=== PATIENT | female | born 1940 | race Caucasian/White ===

== ENCOUNTER 2018-11-17 11:54 | Observation (INO) ==
[2018-11-17 12:04] VITALS: BMI 21.1
--- NOTE | 2018-11-17 12:59 | DR.GENAD ---
HPI Time Seen Time Seen by Provider: 11/17/18 12:56 PCP Primary Care Physician: SWATI HPI Comment HPI Comment: PATIENT IS 78YR OLD WHITE FEMALE WITH HISTORY OF COPD, PULMONARY FIBROSIS AND BRONCHIECTASIS IS IN ED WITH INCREASE SYMPTOMS AND FEVER THAT STARTED YESTERDAY. HOME MEDICATIONS ARE NOT HELPING SYMPTOMS. PATIENT IS ALSO WEAK AND FATIGUE. NOT ON ANTIBIOTICS CURRENTLY. Complaint/Symptoms Chief Complaint Doctors Comments: INCREASING COUGH, GREENISH SPUTUM FOR SEVERAL DAYS AND FEVER TIMES ONE DAY. Chief Complaint:: COUGH/FEVER: FEVER HAS BEEN UP TO 101. FEVER STARTED 11/16/18.TOOK TYLENOL EX AND FEVER WENT DOWN. COUGHING UP GREEN THICK MUCUS. HEAD IS STUFFY WITH HEADACHE. Nurses notes reviewed Nurses Notes Review: Yes Source History Provided: Patient Mode of Arrival Mode of Arrival: Wheelchair Timing Onset of Chief Complaint: 11/14/18 Came on: Gradually Duration Duration: Constant Duration: Days Severity Severity: Moderate Modifying Factors Worsens:: COUGHING WORSENED SYMPTOM. Improves:: REST. Other History Other History: BRONCHIECTASIS. PMH PMH Past Medical History: Yes Past Medical History: COPD, Dyslipidemia and Hypothyroidism Past Surgical History: Yes Surgical History: Hysterectomy Family History History of Family Medical Conditions: Yes Family Medical History: [place], Sudden Cardiac and Hypertension Social History Does any household member use tobacco: No Alcohol Use: None Do you use any recreational Drugs:: No Lives With: Alone Lives Where: Home infectious screening In the last 2 months have you had wt loss of >10#?: NO Have you had fever, night sweats or hemotysis?: No Have you traveled outside the country in the last 6 months?: No Isolation: Standard ROS Review of Systems Constitutional: Fever, Malaise, Weakness and Fatigue; negative Diaphoresis and Other Eyes: No Symptoms Reported; negative Eye Pain, Discharge, Photophobia and D iplopia ENTM: Ear Discharge, Nose Discharge, Nose Congestion and Throat Pain; negative Ear Pain, Nose Pain and Ear Foreign Body Respiratoy: Productive Cough, Short of Breath and Wheezing Cardiovascular: Chest Pain and Edema Gastrointestinal/Abdominal: No Symptoms Reported; negative Abdominal Pain, Constipation, Diarrhea, Nausea and Vomiting Genitourinary: No Symptoms Reported; negative Dysuria, Frequency and Hematuria Neurological: Weakness and Dizziness; negative Headache Musculoskeletal: Back Pain and Muscle Pain Integumentary: Dryness and Rash; negative Change in Color, Bruises and Juandice Hematologic/Lymphatic: Easy Bleeding and Easy Bruising; negative Swollen Glands Endocrine: No Symptoms Reported; negative Increased Thirst and Increased Urine Psychiatric: No Symptoms Reported All Other Systems: Reviewed and Negative PE Vital Signs Vitals: Temperature 97.7 F Pulse Rate [Right Brachial] 98 Pulse Rate 97 Respiratory Rate 20 Blood Pressure [Left Arm] 141/63 Blood Pressure [Right Arm] 154/69 Blood Pressure 162/77 O2 Sat by Pulse Oximetry 97 General Limitations: No Limitations General Appearance: Alert and In Distress Head Head Exam: Normal Inspection, Atraumatic and Normocephalic Eyes Eye exam: Normal Appearance, PERRL and EOMI; negative Scleral Icterus and Conjunctival Injection ENT ENT Exam: Normal External Ear Exam External Ear Exam: Normal External Inspection; negative Mastoid Tenderness, External Tenderness and Periauricular Adenopathy TM/Canal Exam: Bilateral: Normal Nose Exam: Normal Nose Exam; negative Sinus Tenderness, Nasal Deviation, Crepitus and Septal Hematoma Mouth Exam: Normal Inspection; negative Drooling, Trismus, Lip Swelling, Tongue Elevation and Tongue Swelling Throat Exam: Normal Inspection, Tonsillomegaly and Tonsillar Exudate; negative Tonsillar Erythema Neck Neck Exam: Full ROM, Trachea Midline and Other (NECK EINS DISTENTED.); negative Tenderness, Meningismus and Lymphadenopathy Chest Chest Inspection: Symmetric Chest Wall Rise Respiratory Respiratory Exam: Respiratory Distress Respiratory Exam: Bilateral: Wheezing and Bilateral: Rhonchi, Left: Wheezing and Left: Rhonchi, Right: Wheezing and Right: Rhonchi, Upper: Wheezing and Upper: Rhonchi and Lower: Wheezing and Lower: Rhonchi Cardiovascular Cardiovascular Exam: Regular Rate, Normal Rhythm, JVD and +S3; negative Bradycardia and Tachycardia Abdominal Exam Abdominal Exam: Normal Bowel Sounds and Soft; negative Tenderness, Ascites, Mass and Bruit Abdominal Tenderness: Other COURSE Treatment Treatment: 1/2NS AND IV FORTAZ IN ED. Consultation Consultation Comments: DR VANCE WILL ADMIT PATIENT. Education/Counseling Education/Counseling: Patient and Family Educated On: Diagnosis and Needs for Follow Up ROR Labs Reviewed Laboratory Results Reviewed?: Yes Result Diagrams: 11/17/18 13:10 11/17/18 13:10 Laboratory: 11/17/18 14:20 Sputum - Expectorated Sputum - Final WBC 12.3 X10^3/uL (3.6-10.0) H 11/17/18 13:10 RBC 4.82 X10^6/uL (3.5-5.4) 11/17/18 13:10 Hgb 14.0 g/dL (12.0-16.0) 11/17/18 13:10 Hct 41.9 % (36.0-47.0) 11/17/18 13:10 MCV 86.9 fL (80.0-100.0) 11/17/18 13:10 MCH 29.1 pg (27.0-34.0) 11/17/18 13:10 MCHC 33.5 g/dL (33.0-35.0) 11/17/18 13:10 RDW 15.1 % (11.6-16.5) 11/17/18 13:10 Plt Count 262 X10^3/uL (150.0-450.0) 11/17/18 13:10 MPV 9.1 fL (7.4-11.0) 11/17/18 13:10 Neut % (Auto) 86.4 % (42.0-75.0) H 11/17/18 13:10 Lymph % (Auto) 7.4 % (21.0-51.0) L 11/17/18 13:10 [place] % (Auto) 5.5 % (0.0-13.0) 11/17/18 13:10 Eos % (Auto) 0.1 % (0.9-2.9) L 11/17/18 13:10 Baso % (Auto) 0.6 % (0.2-1.0) 11/17/18 13:10 Neut # (Auto) 10.6 x10^3/uL (2.2-4.8) H 11/17/18 13:10 Lymph # (Auto) 0.9 X10^3/uL (1.3-2.9) L 11/17/18 13:10 [place] # (Auto) 0.7 x10^3/uL (0.3-0.8) 11/17/18 13:10 Eos # (Auto) 0.0 x10^3/uL (0.0-0.2) 11/17/18 13:10 Baso # (Auto) 0.1 X10^3/uL (0.0-0.1) 11/17/18 13:10 Absolute Nucleated RBC 0.0 /100WBC 11/17/18 13:10 Sample Site Rr 11/17/18 16:54 ABG pH 7.470 (7.35-7.45) H 11/17/18 16:54 ABG pCO2 40.0 mmHg (35.0-45.0) 11/17/18 16:54 ABG pO2 44.0 mmHg (80.0-100.0) L* 11/17/18 16:54 ABG HCO3 29.1 mmol/L (22-26) H 11/17/18 16:54 ABG O2 Saturation 83.0 % (90-100) L* 11/17/18 16:54 ABG Base Excess 5.0 mmol/L (-2.0-2.0) H 11/17/18 16:54 Prince Test Pos 11/17/18 16:54 A-a Gradient 56.0 mmHg 11/17/18 16:54 FiO2 21.0 11/17/18 16:54 Blood Gas Comments Pt yoly well. cdn 11/17/18 16:54 Sodium 136 mmol/L (136-145) 11/17/18 13:10 Corrected Sodium 137 mmol/L (136-145) 11/17/18 13:10 Potassium 4.1 mmol/L (3.5-5.1) 11/17/18 13:10 Chloride 99 mmol/L (98-107) 11/17/18 13:10 Carbon Dioxide 28.4 mmol/L (21-32) 11/17/18 13:10 BUN 12 mg/dL (7-18) 11/17/18 13:10 Creatinine 0.80 mg/dL (0.55-1.02) 11/17/18 13:10 Est GFR (MDRD) Af Amer > 60 (>60) 11/17/18 13:10 Est GFR (MDRD) Non-Af > 60 (>60) 11/17/18 13:10 Glucose 127 mg/dL (65-99) H 11/17/18 13:10 Lactic Acid 0.9 mmol/L (0.4-2.0) 11/17/18 13:10 Calcium 9.7 mg/dL (8.5-10.1) 11/17/18 13:10 Corrected Calcium TNP 04/14/19 13:10 Total Bilirubin 0.20 mg/dL (0.2-1.0) 11/17/18 13:10 AST 20 Units/L (15-37) 11/17/18 13:10 ALT 22 Units/L (12-78) 11/17/18 13:10 Alkaline Phosphatase 67 Units/L (46-116) 11/17/18 13:10 C-Reactive Protein 78.00 mg/L (0-3.0) H 11/17/18 13:10 Total Protein 7.5 g/dL (6.4-8.2) 11/17/18 13:10 Albumin 3.4 g/dL (3.4-5.0) 11/17/18 13:10 Globulin 4.1 g/dL (2.5-4.5) 11/17/18 13:10 Albumin/Globulin Ratio 0.8 Ratio (1.1-2.1) L 11/17/18 13:10 Specimen Type Clean catch urine 11/17/18 13:55 Urine Color Yellow (YELLOW) 11/17/18 13:55 Urine Appearance Clear (CLEAR) 11/17/18 13:55 Urine pH 6.0 (5.0 - 8.0) 11/17/18 13:55 Ur Specific [place] 1.010 (1.000-1.030) 11/17/18 13:55 Urine Protein Negative (NEGATIVE) 11/17/18 13:55 Urine Glucose (UA) Negative (NEGATIVE) 11/17/18 13:55 Urine Ketones 1+ (NEGATIVE) 11/17/18 13:55 Urine Occult Blood Negative (NEGATIVE) 11/17/18 13:55 Urine Nitrite Negative (NEGATIVE) 11/17/18 13:55 Urine Bilirubin Negative (NEGATIVE) 11/17/18 13:55 Urine Urobilinogen Normal (NORMAL) 11/17/18 13:55 Ur Leukocyte Esterase Negative (NEGATIVE) 11/17/18 13:55 XRAY XRAY Interpreted by: Radiologist XRAY Findings: EPORT ON RECORD NOTED AND DISCUSS WITH PATIENT.
[2018-11-17 13:22] LABS: BASOPHILS # (AUTO) 0.1 X10^3/uL (0.0-0.1); BASOPHILS % (AUTO) 0.6 % (0.2-1.0); EOSINOPHILS % (AUTO) 0.1 % (0.9-2.9); HEMATOCRIT 41.9 % (36.0-47.0); LYMPHOCYTES # (AUTO) 0.9 X10^3/uL (1.3-2.9); LYMPHOCYTES % (AUTO) 7.4 % (21.0-51.0); MEAN CORPUSCULAR HEMOGLOBIN 29.1 pg (27.0-34.0); MEAN CORPUSCULAR HGB CONC 33.5 g/dL (33.0-35.0); MEAN CORPUSCULAR VOLUME 86.9 fL (80.0-100.0); MEAN PLATELET VOLUME 9.1 fL (7.4-11.0); MONOCYTES # (AUTO) 0.7 x10^3/uL (0.3-0.8); MONOCYTES % (AUTO) 5.5 % (0.0-13.0); NEUTROPHILS # (AUTO) 10.6 x10^3/uL (2.2-4.8); NEUTROPHILS % (AUTO) 86.4 % (42.0-75.0); PLATELET COUNT 262 X10^3/uL (150.0-450.0); RED BLOOD COUNT 4.82 X10^6/uL (3.5-5.4); RED CELL DISTRIBUTION WIDTH 15.1 % (11.6-16.5); WHITE BLOOD COUNT 12.3 X10^3/uL (3.6-10.0)
[2018-11-17 13:37] LABS: ALANINE AMINOTRANSFERASE 22 Units/L (12-78); ALBUMIN 3.4 g/dL (3.4-5.0); ALKALINE PHOSPHATASE 67 Units/L (46-116); ASPARTATE AMINO TRANSFERASE 20 Units/L (15-37); BLOOD UREA NITROGEN 12 mg/dL (7-18); CALCIUM 9.7 mg/dL (8.5-10.1); CARBON DIOXIDE 28.4 mmol/L (21-32); CHLORIDE 99 mmol/L (98-107); COR NA(FOR HYPERGLY) 137 mmol/L (136-145); SODIUM 136 mmol/L (136-145); TOTAL PROTEIN 7.5 g/dL (6.4-8.2); eGFR NON BLACK RACES > 60 (>60)
[2018-11-17 13:39] LABS: LACTIC ACID 0.9 mmol/L (0.4-2.0)
[2018-11-17 14:01] LABS: BILIRUBIN,URINE NEGATIVE (NEGATIVE); BLOOD/HEMOGLOBIN,URINE NEGATIVE (NEGATIVE); GLUCOSE, URINE NEGATIVE (NEGATIVE); KETONES,URINE 1+ (NEGATIVE); LEUKOCYTE ESTERASE ,URINE NEGATIVE (NEGATIVE); NITRITES,URINE NEGATIVE (NEGATIVE); PROTEIN,URINE NEGATIVE (NEGATIVE); UROBILINOGEN,URINE NORMAL (NORMAL)
[2018-11-17 14:02] LABS: APPEARANCE,URINE CLEAR (CLEAR); COLOR,URINE YELLOW (YELLOW)
--- NOTE | 2018-11-17 14:27 | RAD ---
Examination: Chest, PA and lateral views History: Cough and fever Comparison 08/11/2014 Findings: Normal heart size with hyperaerated lungs and extensive reticular-nodular interstitial disease throughout the lungs. There is slight left apical pleural thickening. No acute consolidation, mass or large pleural effusion. 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 Similar findings were documented on chest CT of 08/06/2012. The current radiographic findings have progressed since 08/11/2014. A repeat/comparison chest CT may be of value. Reported By:
[2018-11-17] MEDS ORDERED: ROCEPHIN VIAL 1 GRAM IV ONE (15:54)
[2018-11-17] MEDS: NS 1/2 1000 ML IV 1,000 ML IV SCH (16:29)
[2018-11-17] MEDS ORDERED: NS 1/2 1000 ML IV 1,000 ML ONE (16:29)
[2018-11-17] MEDS: SOLU-Medrol 40 MG VIAL IVP SCH ×2 (16:30→21:48)
[2018-11-17] MEDS: FORTAZ or TAZICEF VIAL INJ IVP SCH ×2 (16:30→21:49)
[2018-11-17] MEDS ORDERED: FORTAZ or TAZICEF VIAL INJ ONE (16:30)
[2018-11-17] MEDS ORDERED: SOLU-Medrol 40 MG VIAL ONE (16:30)
[2018-11-17] MEDS: DUONEB 0.5 MG/3 MG NEB SCH ×2 (16:52→20:18)
[2018-11-17 16:57] LABS: ABG HCO3 29.1 mmol/L (22-26)
[2018-11-17 16:59] LABS: ABG ALLEN TEST POS
[2018-11-17] MEDS: PULMICORT NEB TX 0.5 MG NEB SCH (20:18)
[2018-11-17] MEDS: MUCOMYST 20% 200 MG/ML NEB SCH (20:19)
[2018-11-17] MEDS ORDERED: NORVASC TAB 2.5 MG ONE (20:19)
[2018-11-17] MEDS: KLONOPIN TAB 0.5 MG PO SCH (20:32)
[2018-11-17] MEDS: NORVASC TAB 2.5 MG PO SCH (20:32)
[2018-11-17] MEDS: BROVANA IN SCH (20:45)
[2018-11-18] MEDS: DUONEB 0.5 MG/3 MG NEB SCH ×6 (00:14→20:56)
[2018-11-18] MEDS: NS 1/2 1000 ML IV 1,000 ML IV SCH ×2 (05:00→20:37)
[2018-11-18 05:21] LABS: BASOPHILS % (AUTO) 0.2 % (0.2-1.0); HEMATOCRIT 38.9 % (36.0-47.0); HEMOGLOBIN 12.9 g/dL (12.0-16.0); LYMPHOCYTES # (AUTO) 0.9 X10^3/uL (1.3-2.9); LYMPHOCYTES % (AUTO) 11.9 % (21.0-51.0); MEAN CORPUSCULAR HEMOGLOBIN 29.2 pg (27.0-34.0); MEAN CORPUSCULAR HGB CONC 33.2 g/dL (33.0-35.0); MEAN CORPUSCULAR VOLUME 88.1 fL (80.0-100.0); MEAN PLATELET VOLUME 9.3 fL (7.4-11.0); MONOCYTES # (AUTO) 0.5 x10^3/uL (0.3-0.8); MONOCYTES % (AUTO) 7.2 % (0.0-13.0); NEUTROPHILS % (AUTO) 80.7 % (42.0-75.0); PLATELET COUNT 251 X10^3/uL (150.0-450.0); RED BLOOD COUNT 4.42 X10^6/uL (3.5-5.4); RED CELL DISTRIBUTION WIDTH 15.1 % (11.6-16.5); WHITE BLOOD COUNT 7.4 X10^3/uL (3.6-10.0)
[2018-11-18 05:28] LABS: BLOOD UREA NITROGEN 13 mg/dL (7-18); CALCIUM 9.4 mg/dL (8.5-10.1); CARBON DIOXIDE 28.6 mmol/L (21-32); CHLORIDE 101 mmol/L (98-107); COR NA(FOR HYPERGLY) 140 mmol/L (136-145); CREATININE 0.92 mg/dL (0.55-1.02); SODIUM 138 mmol/L (136-145); eGFR NON BLACK RACES > 60 (>60)
[2018-11-18] MEDS: FORTAZ or TAZICEF VIAL INJ IVP SCH ×4 (05:32→21:17)
[2018-11-18] MEDS: SYNTHROID 75 mcg TAB PO SCH ×3 (05:33→17:08)
[2018-11-18] MEDS ORDERED: K-RIDER 10 MEQ/NS 100 ML 10 MEQ/100 ML BAG IV PRN (05:49)
[2018-11-18] MEDS ORDERED: POTASSIUM CHL 60 MEQ/NS 0.45% 500 ML IV PRN (05:49)
[2018-11-18] MEDS ORDERED: KLOR-CON PO PRN (05:49)
[2018-11-18] MEDS ORDERED: K-DUR TAB 20 MEQ PO PRN (05:49)
[2018-11-18] MEDS ORDERED: POTASSIUM CHLORIDE LIQ 20 MEQ UDC PO PRN (05:49)
[2018-11-18] MEDS ORDERED: MICRO K EXTEN CAP 10 MEQ PO PRN (05:49)
[2018-11-18] MEDS ORDERED: POTASSIUM CHL 40 MEQ/NS 0.45% 500 ML IV PRN (05:49)
[2018-11-18] MEDS: MAGNESIUM SULFATE 1 GRAM/100 mL PREMIX 1 GM/100 ML BAG IV PRN ×2 (06:38→08:21)
[2018-11-18] MEDS ORDERED: NORVASC TAB 2.5 MG ONE ×2 (08:09→19:48)
[2018-11-18] MEDS: SOLU-Medrol 40 MG VIAL IVP SCH ×2 (08:17→20:31)
[2018-11-18] MEDS: NORVASC TAB 2.5 MG PO SCH (08:17)
[2018-11-18] MEDS: PULMICORT NEB TX 0.5 MG NEB SCH ×2 (08:25→20:57)
[2018-11-18] MEDS: BROVANA IN SCH ×2 (08:25→21:19)
[2018-11-18] MEDS: MUCOMYST 20% 200 MG/ML NEB SCH ×4 (08:25→20:56)
[2018-11-18] MEDS ORDERED: PATIENT'S HOME MEDICATION (Fluticasone-Umeclidin-Vilanter [Fluticasone-Umeclidin-Vilanter] IN SCH (10:30)
[2018-11-18] MEDS ORDERED: UNIPHYL TAB 400 MG PO SCH (11:00)
[2018-11-18] MEDS ORDERED: ASTELIN NASAL SPRAY ONE ×2 (12:24→20:52)
[2018-11-18] MEDS: UNIPHYL TAB 400 MG PO SCH (12:28)
[2018-11-18] MEDS: MEGACE PO SCH ×4 (12:28→20:40)
[2018-11-18] MEDS: ASTELIN NASAL SPRAY ENOSTRIL SCH ×3 (12:29→21:00)
--- NOTE | 2018-11-18 20:00 | DR.H&P ---
H&P - History & Physical for Day of: H&P Date: 11/17/18 - Chief Complaint Chief Complaint: PRODUCTIVE COUGH, HEADACHE, SOB - History of Present Illness History of Present Illness: IS A 78 YEAR OLD PATIENT OF OURS WHO PRESENTED TO THE ER WITH REPORTS OF INCREASING COUGH, GREENISH SPUTUM, SHORTNESS OF BREATH, AND FEVER SINCE ONE DAY PRIOR. SHE ALSO REPORTS A HEADACHE. SHE HAS A HISTORY OF COPD, PULMONARY FIBROSIS, AND CHRONIC BRONCHITIS. ON ARRIVAL, VITALS WERE 99.4-118-20-95%-162/77. LABS WERE OBTAINED. ABNORMAL LAB VALUES INCLUDE THE FOLLOWING: WBC 12.3, GLUCOSE 127, CRP 78.0. ABG REVEALED: PH 7.470, PC02 40.0, P02 44.0, HC03 29.1, 02 SATURATION 83.0, BASE EXCESS 5.0. SPUTUM AND BLOOD CULTURE PENDING. 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 Similar findings were documented on chest CT of 08/06/2012. The current radiographic findings have progressed since 08/11/2014. A repeat/comparison chest CT may be of value. SHE WAS GIVEN ROCEPHIN 1G IV X 1 DOSE IN THE ER. SHE WAS ADMITTED FOR FURTHER EVAULATION AND TREATMENT OF COPD EXACERBATION. SHE WAS STARTED ON RESPIRATORY TREATMENTS, SUPPLEMENTAL OXYGEN, FORTAZ 1G IV Q8H, AND SOLU-MEDROL 40MG IV Q12H. WE PLAN TO FOLLOW UP WITH AM LABS AND CONTINUE TO MONITOR. - Past Medical History Past Medical History: Dyslipidemia, Hypothyroidism, COPD - Past Surgical History Surgical History: Hysterectomy - Family History Family Medical History: [place], Sudden Cardiac , Hypertension - Social History Does patient currently use any type of tobacco product: No Have you used tobacco products in the last 12 months: No Type of Tobacco Use: None How many years tobacco product used: 30 Does any household member use tobacco: No Alcohol Use: None Drug Use: None - Medications Home Medications: codeine Allergy (Verified 11/17/18 14:00) hydrocodone Allergy (Verified 11/17/18 14:00) CONTINUE taking the following medications azelastine 1 mcg INTRANASAL BID 11/17/18 [History] azelastine 1 mcg INTRANASAL BID 11/17/18 [History] itnlnmwarkf-zaycyfizy-ydxtogpe [Trelegy Ellipta] 1 mcg INHALATION DAILY 11/17/18 [History] lorazepam 0.5 mg PO BID PRN 11/17/18 [History] megestrol 40 mg PO BID 11/17/18 [History] - Review of Systems Constitutional: See HPI, Fever, Chills Eyes: No Symptoms Reported ENT: No Symptoms Reported Respiratory: See HPI, Cough, Shortness of Breath, SOB with Excertion, Sputum, Wheezing Cardiovascular: No Symptoms Reported Gastrointestinal: No Symptoms Reported Genitourinary: No Symptoms Reported Musculoskeletal: No Symptoms Reported Skin: No Symptoms Reported Neurological: Weakness - Physical Exam Vital Signs: Temperature 98.1 F Pulse Rate [Right Brachial] 116 Pulse Rate 116 Respiratory Rate 20 Blood Pressure [Left Arm] 141/63 Blood Pressure [Right Arm] 144/67 Blood Pressure 162/77 O2 Sat by Pulse Oximetry 98 Oriented: Normal Eyes: Normal Ear: Normal Nose: Normal Throat: Normal Respiratory: Wheezes Throughout Cardiovascular: Tachycardia : Normal Auscultation: Bowel Sounds: Normal Palpation: Normal Tenderness: Normal Skin: Normal Musculoskeletal: Normal Psychiatric: Normal Mood Description: Calm Affect: Normal Speech Pattern: Clear - Assessment/Plan (1) COPD exacerbation Status: Acute Plan: IV ANTIBIOTICS, RESPIRATORY TX, SUPPLEMENTAL OXYGEN, SOLU-MEDROL, CONTINUE TO MONITOR - Allergies Allergies/Adverse Reactions: Allergies Allergy/AdvReac Type Severity Reaction Status Date / Time codeine Allergy Verified 11/17/18 14:00 hydrocodone Allergy Verified 11/17/18 14:00
[2018-11-18] MEDS: KLONOPIN TAB 0.5 MG PO SCH (20:30)
[2018-11-18] MEDS ORDERED: NS 1/2 1000 ML IV 1,000 ML ONE (20:36)
--- NOTE | 2018-11-18 20:43 | PCM.PROG ---
Progress Note - Progress Note for Day of Date of Exam: 11/18/18 - Subjective Subjective: WAS ADMITTED FOR COPD EXACERBATION. TODAY, SHE IS ALERT AND ORIENTED, SITTING UP IN BED ON MORNING ROUNDS. SHE CONTINUES WITH COMPLAINTS OF SHORTNESS OF BREATH AND A PRODUCTIVE COUGH. ON EXAMINATION, HEART IS REGULAR IN RATE AND RHYTHM. BILATERAL LUNGS CONTINUE WITH COURSE WHEEZES AND RHONCHI. ABDOMEN IS ROUND, SOFT, AND NON-TENDER WITH NORMAL BOWEL SOUNDS NOTED IN ALL QUADRANTS. HER VITALS THIS MORNING ARE 98.0-107-20-97%-137/66. LABS WERE OBTAINED. SHE IS HEMODYNAMICALLY STABLE TODAY. SHE IS CURRENTLY RECEIVING IV ANTIBIOTICS, RESPIRATORY TX, IV STEROIDS, AND SUPPLEMENTAL OXYGEN. WE WILL CONTINUE WITH CURRENT PLAN OF CARE TODAY. OTHERWISE, WE WILL FOLLOW UP WITH AM LABS AND CONTINUE TO MONITOR. - Past Medical Family Social History Past Med/Fam/Surg Hx: No changes since H&P Allergies: Allergies codeine Allergy (Verified 11/17/18 14:00) hydrocodone Allergy (Verified 11/17/18 14:00) - Review of Systems ROS: No change since H&P - Vital Signs and I&O's Vital Signs: Temperature 98.0 F Pulse Rate [Right Brachial] 120 Pulse Rate 116 Respiratory Rate 20 Blood Pressure [Left Arm] 141/63 Blood Pressure [Right Arm] 139/66 Blood Pressure 162/77 O2 Sat by Pulse Oximetry 91 Intake and Output: Intake & Output 11/16/18 11/17/18 11/18/18 11/19/18 11:59 11:59 11:59 11:59 Intake Total 960 / 960 720 / 720 Balance 960 / 960 720 / 720 - Physical Exam Oriented: Normal Eyes: Normal Ear: Normal Nose: Normal Throat: Normal Respiratory: Generalized, Wheezes, Rhonchi Cardiovascular: Tachycardia : Normal Auscultation: Bowel Sounds: Normal Palpation: Normal Tenderness: Normal Skin: Normal Musculoskeletal: Normal Psychiatric: Normal Mood Description: Calm Affect: Normal Speech Pattern: Clear - Laboratory and Diagnostics Result Diagrams: 11/18/18 04:13 11/18/18 04:13 Labs: 11/17/18 14:20 Sputum - Expectorated Sputum Sputum Culture - Preliminary 11/17/18 14:20 Sputum - Expectorated Sputum - Final Laboratory WBC 7.4 X10^3/uL (3.6-10.0) 11/18/18 04:13 RBC 4.42 X10^6/uL (3.5-5.4) 11/18/18 04:13 Hgb 12.9 g/dL (12.0-16.0) 11/18/18 04:13 Hct 38.9 % (36.0-47.0) 11/18/18 04:13 MCV 88.1 fL (80.0-100.0) 11/18/18 04:13 MCH 29.2 pg (27.0-34.0) 11/18/18 04:13 MCHC 33.2 g/dL (33.0-35.0) 11/18/18 04:13 RDW 15.1 % (11.6-16.5) 11/18/18 04:13 Plt Count 251 X10^3/uL (150.0-450.0) 11/18/18 04:13 MPV 9.3 fL (7.4-11.0) 11/18/18 04:13 Neut % (Auto) 80.7 % (42.0-75.0) H 11/18/18 04:13 Lymph % (Auto) 11.9 % (21.0-51.0) L 11/18/18 04:13 [place] % (Auto) 7.2 % (0.0-13.0) 11/18/18 04:13 Eos % (Auto) 0.0 % (0.9-2.9) L 11/18/18 04:13 Baso % (Auto) 0.2 % (0.2-1.0) 11/18/18 04:13 Neut # (Auto) 6.0 x10^3/uL (2.2-4.8) H 11/18/18 04:13 Lymph # (Auto) 0.9 X10^3/uL (1.3-2.9) L 11/18/18 04:13 [place] # (Auto) 0.5 x10^3/uL (0.3-0.8) 11/18/18 04:13 Eos # (Auto) 0.0 x10^3/uL (0.0-0.2) 11/18/18 04:13 Baso # (Auto) 0.0 X10^3/uL (0.0-0.1) 11/18/18 04:13 Absolute Nucleated RBC 0.0 /100WBC 11/18/18 04:13 Sample Site Rr 11/17/18 16:54 ABG pH 7.470 (7.35-7.45) H 11/17/18 16:54 ABG pCO2 40.0 mmHg (35.0-45.0) 11/17/18 16:54 ABG pO2 44.0 mmHg (80.0-100.0) L* 11/17/18 16:54 ABG HCO3 29.1 mmol/L (22-26) H 11/17/18 16:54 ABG O2 Saturation 83.0 % (90-100) L* 11/17/18 16:54 ABG Base Excess 5.0 mmol/L (-2.0-2.0) H 11/17/18 16:54 Prince Test Pos 11/17/18 16:54 A-a Gradient 56.0 mmHg 11/17/18 16:54 FiO2 21.0 11/17/18 16:54 Blood Gas Comments Pt yoly well. cdn 11/17/18 16:54 Sodium 138 mmol/L (136-145) 11/18/18 04:13 Corrected Sodium 140 mmol/L (136-145) 11/18/18 04:13 Potassium 3.7 mmol/L (3.5-5.1) 11/18/18 04:13 Chloride 101 mmol/L (98-107) 11/18/18 04:13 Carbon Dioxide 28.6 mmol/L (21-32) 11/18/18 04:13 BUN 13 mg/dL (7-18) 11/18/18 04:13 Creatinine 0.92 mg/dL (0.55-1.02) 11/18/18 04:13 Est GFR (MDRD) Af Amer > 60 (>60) 11/18/18 04:13 Est GFR (MDRD) Non-Af > 60 (>60) 11/18/18 04:13 Glucose 178 mg/dL (65-99) H 11/18/18 04:13 Lactic Acid 0.9 mmol/L (0.4-2.0) 11/17/18 13:10 Calcium 9.4 mg/dL (8.5-10.1) 11/18/18 04:13 Corrected Calcium TNP 11/17/18 13:10 Magnesium 1.9 mg/dL (1.7-2.9) 11/18/18 04:13 Total Bilirubin 0.20 mg/dL (0.2-1.0) 11/17/18 13:10 AST 20 Units/L (15-37) 11/17/18 13:10 ALT 22 Units/L (12-78) 11/17/18 13:10 Alkaline Phosphatase 67 Units/L (46-116) 11/17/18 13:10 C-Reactive Protein 78.00 mg/L (0-3.0) H 11/17/18 13:10 Total Protein 7.5 g/dL (6.4-8.2) 11/17/18 13:10 Albumin 3.4 g/dL (3.4-5.0) 11/17/18 13:10 Globulin 4.1 g/dL (2.5-4.5) 11/17/18 13:10 Albumin/Globulin Ratio 0.8 Ratio (1.1-2.1) L 11/17/18 13:10 Specimen Type Clean catch urine 11/17/18 13:55 Urine Color Yellow (YELLOW) 11/17/18 13:55 Urine Appearance Clear (CLEAR) 11/17/18 13:55 Urine pH 6.0 (5.0 - 8.0) 11/17/18 13:55 Ur Specific [place] 1.010 (1.000-1.030) 11/17/18 13:55 Urine Protein Negative (NEGATIVE) 11/17/18 13:55 Urine Glucose (UA) Negative (NEGATIVE) 11/17/18 13:55 Urine Ketones 1+ (NEGATIVE) 11/17/18 13:55 Urine Occult Blood Negative (NEGATIVE) 11/17/18 13:55 Urine Nitrite Negative (NEGATIVE) 11/17/18 13:55 Urine Bilirubin Negative (NEGATIVE) 11/17/18 13:55 Urine Urobilinogen Normal (NORMAL) 11/17/18 13:55 Ur Leukocyte Esterase Negative (NEGATIVE) 11/17/18 13:55 - Plan (1) COPD exacerbation Status: Acute Plan: IV ANTIBIOTICS, RESPIRATORY TX, SUPPLEMENTAL OXYGEN, SOLU-MEDROL, CONTINUE TO MONITOR
[2018-11-18] MEDS ORDERED: NORVASC TAB 2.5 MG PO SCH (21:00)
[2018-11-18] MEDS ORDERED: TOPROL XL PO SCH (21:00)
[2018-11-19] MEDS: DUONEB 0.5 MG/3 MG NEB SCH ×3 (01:24→08:59)
[2018-11-19] MEDS: FORTAZ or TAZICEF VIAL INJ IVP SCH (05:09)
[2018-11-19 05:14] LABS: BASOPHILS % (AUTO) 0.1 % (0.2-1.0); HEMOGLOBIN 12.1 g/dL (12.0-16.0); LYMPHOCYTES # (AUTO) 0.6 X10^3/uL (1.3-2.9); LYMPHOCYTES % (AUTO) 6.2 % (21.0-51.0); MEAN CORPUSCULAR HEMOGLOBIN 29.5 pg (27.0-34.0); MEAN CORPUSCULAR HGB CONC 33.6 g/dL (33.0-35.0); MEAN CORPUSCULAR VOLUME 87.7 fL (80.0-100.0); MEAN PLATELET VOLUME 9.2 fL (7.4-11.0); MONOCYTES # (AUTO) 0.5 x10^3/uL (0.3-0.8); MONOCYTES % (AUTO) 4.6 % (0.0-13.0); NEUTROPHILS % (AUTO) 89.1 % (42.0-75.0); PLATELET COUNT 240 X10^3/uL (150.0-450.0); RED CELL DISTRIBUTION WIDTH 14.9 % (11.6-16.5); WHITE BLOOD COUNT 10.1 X10^3/uL (3.6-10.0)
[2018-11-19 05:34] LABS: ALANINE AMINOTRANSFERASE 20 Units/L (12-78); ALBUMIN 2.8 g/dL (3.4-5.0); ALKALINE PHOSPHATASE 51 Units/L (46-116); ASPARTATE AMINO TRANSFERASE 18 Units/L (15-37); BLOOD UREA NITROGEN 13 mg/dL (7-18); CALCIUM 8.8 mg/dL (8.5-10.1); CARBON DIOXIDE 28.6 mmol/L (21-32); CHLORIDE 104 mmol/L (98-107); COR CA(FOR HYPOALB) 9.8 mg/dL (8.5-10.1); COR NA(FOR HYPERGLY) 141 mmol/L (136-145); CREATININE 0.77 mg/dL (0.55-1.02); MAGNESIUM 2.1 mg/dL (1.7-2.9); SODIUM 139 mmol/L (136-145); TOTAL PROTEIN 6.3 g/dL (6.4-8.2); eGFR NON BLACK RACES > 60 (>60)
--- NOTE | 2018-11-19 07:24 | RAD ---
HISTORY: Shortness of breath Study: Chest AP portable Comparison: 11/17/2018 Findings: The heart is upper limits normal in size. No congestive heart failure is noted. The marianela are normal. The lungs are hyperinflated. Diffuse chronic interstitial lung disease is present likely fibrotic in origin and unchanged from the prior examination. No acute alveolar infiltrates or pleural effusions are identified. The bony thorax is unremarkable. IMPRESSION: No significant change from the prior examination Reported By:
[2018-11-19] MEDS: BROVANA IN SCH (08:52)
[2018-11-19] MEDS: MUCOMYST 20% 200 MG/ML NEB SCH (08:59)
[2018-11-19] MEDS: PULMICORT NEB TX 0.5 MG NEB SCH (08:59)
[2018-11-19] MEDS: UNIPHYL TAB 400 MG PO SCH (09:17)
[2018-11-19] MEDS: SOLU-Medrol 40 MG VIAL IVP SCH (09:17)
[2018-11-19] MEDS: ASTELIN NASAL SPRAY ENOSTRIL SCH (09:21)
[2018-11-19] MEDS: MEGACE PO SCH (09:22)
[2018-11-19] MEDS ORDERED: SYNTHROID 75 mcg TAB PO SCH (10:00)
[2018-11-19 13:56] VITALS: BP 113/59
== END 2018-11-19 12:45 | disposition home or self-care (01) ==
LOC: ER 11:57 → MED/SURG 11:57
PROVIDERS: ADMIT Internal Medicine; ATTEND Internal Medicine
DX: Z79.899 Other long term (current) drug therapy; E78.2 Mixed hyperlipidemia; J44.1 Chronic obstructive pulmonary disease with (acute) exacerbation; J84.10 Pulmonary fibrosis, unspecified; R06.02 Shortness of breath; E03.8 Other specified hypothyroidism; R73.09 Other abnormal glucose; B96.5 Pseudomonas (aeruginosa) (mallei) (pseudomallei) as the cause of diseases classified elsewhere; R51 Headache; R79.82 Elevated C-reactive protein (CRP)
CPT/HCPCS: 36415; 36600; 71010; 71020; 71045; 71046; 80048; 80053; 81003; 82803; 83605; 83735; 85025; 86140; 87040; 87070; 87077; 87186; 87205; 94640; 94669; 94760; 96365; 96367; 96374; 96375; 99284; A4222; S0179; G0378; J0713; J2920; J3475; J7620; J7626

== ENCOUNTER 2022-01-18 16:04 | Inpatient (IN) ==
[2022-01-18] MEDS ORDERED: DUONEB 0.5 MG/3 MG (3 mL) NEB ONE (16:54)
[2022-01-18] MEDS: DUONEB 0.5 MG/3 MG (3 mL) NEB SCH ×2 (17:00→20:20)
[2022-01-18 17:40] VITALS: BMI 19.1
[2022-01-18 17:50] LABS: BASOPHILS # (AUTO) 0.2 X10^3/uL (0.0-0.1); BASOPHILS % (AUTO) 1.3 % (0.2-1.0); EOSINOPHILS # (AUTO) 0.2 x10^3/uL (0.0-0.2); EOSINOPHILS % (AUTO) 1.1 % (0.9-2.9); HEMATOCRIT 41.9 % (36.0-47.0); HEMOGLOBIN 14.6 g/dL (12.0-16.0); LYMPHOCYTES # (AUTO) 3.1 X10^3/uL (1.3-2.9); LYMPHOCYTES % (AUTO) 19.1 % (21.0-51.0); MEAN CORPUSCULAR HGB CONC 34.8 g/dL (33.0-35.0); MEAN CORPUSCULAR VOLUME 86.2 fL (80.0-100.0); MEAN PLATELET VOLUME 9.7 fL (7.4-11.0); MONOCYTES # (AUTO) 1.5 x10^3/uL (0.3-0.8); MONOCYTES % (AUTO) 9.2 % (0.0-13.0); NEUTROPHILS # (AUTO) 11.3 x10^3/uL (2.2-4.8); NEUTROPHILS % (AUTO) 69.3 % (42.0-75.0); RED BLOOD COUNT 4.86 X10^6/uL (3.5-5.4); RED CELL DISTRIBUTION WIDTH 14.2 % (11.6-16.5); WHITE BLOOD COUNT 16.4 X10^3/uL (3.6-10.0)
[2022-01-18 18:02] LABS: ALANINE AMINOTRANSFERASE 29 Units/L (12-78); BLOOD UREA NITROGEN 19 mg/dL (7-18); CALCIUM 9.4 mg/dL (8.5-10.1); CARBON DIOXIDE 32.4 mmol/L (21-32); CHLORIDE 93 mmol/L (98-107); COR CA(FOR HYPOALB) 10.2 mg/dL (8.5-10.1); CREATININE 0.62 mg/dL (0.55-1.02); SODIUM 130 mmol/L (136-145); TOTAL PROTEIN 6.9 g/dL (6.4-8.2); eGFR NON BLACK RACES > 60 (>60)
[2022-01-18 18:11] LABS: ABG BASE EXCESS 10.2 mmol/L (-2.0-2.0)
[2022-01-18 18:13] LABS: ABG HCO3 34.3 mmol/L (22-26)
[2022-01-18 18:19] LABS: PLATELET MORPHOLOGY COMMENT NORMAL (NORMAL)
[2022-01-18] MEDS: LEVAQUIN PREMIX IV 500 MG 500 MG/100 ML BAG IV SCH (18:20)
[2022-01-18] MEDS: SOLU-Medrol 40 MG VIAL IVP SCH ×2 (18:20→21:00)
[2022-01-18] MEDS: NS 1,000 ML IV 1,000 ML IV SCH (18:20)
[2022-01-18 18:24] LABS: ALKALINE PHOSPHATASE 62 Units/L (46-116); ASPARTATE AMINO TRANSFERASE 65 Units/L (15-37)
[2022-01-18] MEDS ORDERED: PULMICORT NEB TX 0.5 MG NEB ONE (19:05)
[2022-01-18] MEDS: PULMICORT NEB TX 0.5 MG NEB SCH (20:20)
[2022-01-18] MEDS: MEGACE PO SCH (20:26)
[2022-01-18] MEDS: ULTRAM PO PRN (20:26)
--- NOTE | 2022-01-18 21:55 | RAD ---
CHEST, 1 VIEWHISTORY: SOBStudy: AP view of the chest.Comparison:NoneFindings:The cardiomediastinal silhouette is normal. No focal consolidations, pleural effusions or pneumothorax. Osseous structures demonstrate no acute abnormality. Bilateral hyperexpansion and interstitial prominence.IMPRESSION:1. No acute cardiopulmonary process.2. Findings of COPD.Electronically signed by: ELSA BECKMAN (Jan 18, 2022 21:53:43)
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
[2022-01-19 04:34] LABS: ALANINE AMINOTRANSFERASE 22 Units/L (12-78); ALBUMIN 2.8 g/dL (3.4-5.0); ALKALINE PHOSPHATASE 62 Units/L (46-116); ASPARTATE AMINO TRANSFERASE 17 Units/L (15-37); BASOPHILS % (AUTO) 0.1 % (0.2-1.0); BLOOD UREA NITROGEN 18 mg/dL (7-18); CALCIUM 9.3 mg/dL (8.5-10.1); CARBON DIOXIDE 33.6 mmol/L (21-32); CHLORIDE 98 mmol/L (98-107); COR CA(FOR HYPOALB) 10.3 mg/dL (8.5-10.1); COR NA(FOR HYPERGLY) 136 mmol/L (136-145); CREATININE 0.75 mg/dL (0.55-1.02); HEMATOCRIT 37.5 % (36.0-47.0); LYMPHOCYTES # (AUTO) 0.8 X10^3/uL (1.3-2.9); LYMPHOCYTES % (AUTO) 10.2 % (21.0-51.0); MEAN CORPUSCULAR HEMOGLOBIN 29.8 pg (27.0-34.0); MEAN CORPUSCULAR HGB CONC 34.7 g/dL (33.0-35.0); MEAN CORPUSCULAR VOLUME 85.8 fL (80.0-100.0); MEAN PLATELET VOLUME 9.4 fL (7.4-11.0); MONOCYTES # (AUTO) 0.1 x10^3/uL (0.3-0.8); MONOCYTES % (AUTO) 1.3 % (0.0-13.0); NEUTROPHILS # (AUTO) 7.2 x10^3/uL (2.2-4.8); NEUTROPHILS % (AUTO) 88.4 % (42.0-75.0); RED BLOOD COUNT 4.37 X10^6/uL (3.5-5.4); SODIUM 134 mmol/L (136-145); TOTAL PROTEIN 6.1 g/dL (6.4-8.2); eGFR NON BLACK RACES > 60 (>60)
[2022-01-19 04:38] LABS: WHITE BLOOD COUNT 8.1 X10^3/uL (3.6-10.0)
[2022-01-19] MEDS ORDERED: POTASSIUM CHL 40 MEQ/NS 0.45% 500 ML IV PRN (04:58)
[2022-01-19] MEDS ORDERED: K-RIDER 10 MEQ/NS 100 ML 10 MEQ/100 ML BAG IV PRN (04:58)
[2022-01-19] MEDS ORDERED: KLOR-CON PO PRN (04:58)
[2022-01-19] MEDS ORDERED: POTASSIUM CHL 60 MEQ/NS 0.45% 500 ML IV PRN (04:58)
[2022-01-19] MEDS ORDERED: POTASSIUM CHLORIDE LIQ 20 MEQ UDC PO PRN (04:58)
[2022-01-19] MEDS ORDERED: MICRO K EXTEN CAP 10 MEQ PO PRN (04:58)
[2022-01-19] MEDS: K-DUR TAB 20 MEQ PO PRN (05:31)
[2022-01-19] MEDS: SOLU-Medrol 40 MG VIAL IVP SCH ×3 (05:31→21:06)
[2022-01-19] MEDS: MAGNESIUM SULFATE 1 GRAM/100 mL PREMIX 1 G/100 ML BAG IV PRN ×2 (05:32→07:16)
--- NOTE | 2022-01-19 06:21 | RAD ---
HISTORYCOPD EXACERBATION; SOBSTUDYCHEST, 1 [id number]/2022.TECHNIQUEAP view of the chestFINDINGSCardiac and mediastinal contours are within normal limits. Lungs are hyperexpanded. There are moderate bilateral scattered interstitial opacities. Blunted costophrenic sulci. No pneumothorax.IMPRESSIONStable COPD with scattered likely chronic interstitial opacities. Superimposed pneumonia is not excluded.Blunted costophrenic sulci likely pleural parenchymal scarring but differential includes small pleural effusions as well.If there is need to evaluate for pulmonary nodules, CT chest is recommended.Electronically signed by: Sam Whitten (Jan 19, 2022 06:20:02)
[2022-01-19] MEDS: NS 1,000 ML IV 1,000 ML IV SCH ×2 (06:31→20:34)
[2022-01-19] MEDS: PULMICORT NEB TX 0.5 MG NEB SCH ×2 (08:11→20:50)
[2022-01-19] MEDS: DUONEB 0.5 MG/3 MG (3 mL) NEB SCH ×4 (08:11→20:50)
[2022-01-19] MEDS: MEGACE PO SCH ×2 (08:15→20:35)
[2022-01-19] MEDS: LEVAQUIN PREMIX IV 500 MG 500 MG/100 ML BAG IV SCH (08:15)
[2022-01-19] MEDS: NORVASC TAB 5 MG PO SCH (08:16)
[2022-01-19] MEDS: SYNTHROID 75 mcg TAB PO SCH (08:16)
[2022-01-19] MEDS: UNIPHYL TAB 400 MG 24-HR PO SCH (08:17)
[2022-01-19] MEDS: TOPROL XL PO SCH (08:17)
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
[2022-01-19] MEDS ORDERED: PATIENT'S HOME MEDICATION (Fluticasone-Umeclidin-Vilanter [Trelegy Ellipta] 200-62.5-25 mc IN SCH (09:00)
[2022-01-19] MEDS: LOVENOX INJ 40 MG SYR SC SCH (13:36)
[2022-01-19] MEDS: ULTRAM PO PRN ×2 (14:16→20:35)
[2022-01-19] MEDS: KLONOPIN TAB 0.5 MG PO PRN (17:18)
[2022-01-20] MEDS: ULTRAM PO PRN (03:45)
[2022-01-20 05:12] LABS: BASOPHILS % (AUTO) 0.1 % (0.2-1.0); HEMATOCRIT 37.8 % (36.0-47.0); LYMPHOCYTES # (AUTO) 0.8 X10^3/uL (1.3-2.9); LYMPHOCYTES % (AUTO) 5.6 % (21.0-51.0); MEAN CORPUSCULAR HEMOGLOBIN 29.7 pg (27.0-34.0); MEAN CORPUSCULAR HGB CONC 34.4 g/dL (33.0-35.0); MEAN CORPUSCULAR VOLUME 86.2 fL (80.0-100.0); MEAN PLATELET VOLUME 9.3 fL (7.4-11.0); MONOCYTES # (AUTO) 0.5 x10^3/uL (0.3-0.8); MONOCYTES % (AUTO) 3.6 % (0.0-13.0); NEUTROPHILS # (AUTO) 13.3 x10^3/uL (2.2-4.8); NEUTROPHILS % (AUTO) 90.7 % (42.0-75.0); RED BLOOD COUNT 4.39 X10^6/uL (3.5-5.4); RED CELL DISTRIBUTION WIDTH 14.4 % (11.6-16.5); WHITE BLOOD COUNT 14.7 X10^3/uL (3.6-10.0)
[2022-01-20 05:33] LABS: ALANINE AMINOTRANSFERASE 26 Units/L (12-78); ALKALINE PHOSPHATASE 63 Units/L (46-116); ASPARTATE AMINO TRANSFERASE 20 Units/L (15-37); BLOOD UREA NITROGEN 17 mg/dL (7-18); CALCIUM 9.1 mg/dL (8.5-10.1); CARBON DIOXIDE 28.8 mmol/L (21-32); CHLORIDE 101 mmol/L (98-107); COR CA(FOR HYPOALB) 9.9 mg/dL (8.5-10.1); COR NA(FOR HYPERGLY) 138 mmol/L (136-145); CREATININE 0.73 mg/dL (0.55-1.02); SODIUM 136 mmol/L (136-145); TOTAL PROTEIN 6.3 g/dL (6.4-8.2); eGFR NON BLACK RACES > 60 (>60)
[2022-01-20 05:46] LABS: PLATELET MORPHOLOGY COMMENT NORMAL (NORMAL)
[2022-01-20] MEDS: SOLU-Medrol 40 MG VIAL IVP SCH ×3 (06:02→21:20)
--- NOTE | 2022-01-20 06:41 | RAD ---
HISTORYSOBSTUDYCHEST, 1 [id number]/2022.TECHNIQUEAP view of the chestFINDINGSCardiac and mediastinal contours are within normal limits. Background of COPD. Stable bilateral scattered interstitial opacities. Blunted costophrenic sulci appears similar. No discernible pneumothorax. Biapical opacities are present, with nodular opacity at the right apex more conspicuous than prior.IMPRESSIONConsider CT to further evaluate nodular right apical opacity. Otherwise similar appearance to prior.Electronically signed by: Sam Whitten (Jan 20, 2022 06:40:37)
[2022-01-20] MEDS: MAGNESIUM SULFATE 1 GRAM/100 mL PREMIX 1 G/100 ML BAG IV PRN ×2 (07:54→10:38)
[2022-01-20] MEDS: NS 1,000 ML IV 1,000 ML IV SCH ×2 (07:54→20:37)
[2022-01-20] MEDS: LOVENOX INJ 40 MG SYR SC SCH (08:31)
[2022-01-20] MEDS: LEVAQUIN PREMIX IV 500 MG 500 MG/100 ML BAG IV SCH (08:31)
[2022-01-20] MEDS: MEGACE PO SCH ×2 (08:32→20:36)
[2022-01-20] MEDS: NORVASC TAB 5 MG PO SCH (08:43)
[2022-01-20] MEDS: SYNTHROID 75 mcg TAB PO SCH (08:44)
[2022-01-20] MEDS: TOPROL XL PO SCH (08:44)
[2022-01-20] MEDS: UNIPHYL TAB 400 MG 24-HR PO SCH (08:44)
[2022-01-20] MEDS: DUONEB 0.5 MG/3 MG (3 mL) NEB SCH ×4 (09:00→21:11)
[2022-01-20] MEDS: PULMICORT NEB TX 0.5 MG NEB SCH ×2 (09:00→21:11)
[2022-01-20] MEDS ORDERED: NS 100 ML IV 100 ML ONE (09:14)
[2022-01-20] MEDS ORDERED: ULTRAM PO PRN (09:56)
[2022-01-20] MEDS: TORADOL 15 MG VIAL IVP SCH ×2 (10:34→17:46)
--- NOTE | 2022-01-20 11:21 | CT ---
HISTORYEVALUATE NODULAR OPACITY ON CHEST XRAY. COPD. BACK PAINSTUDYCT chest with IV contrastCOMPARISONX-ray 01/20/2022TECHNIQUEMultiple axial images of the chest were obtained from the thoracic inlet to the upper abdomenwith the administration of IV contrast. Sagittal and coronal reformations are performed. Dose reduction techniques including Automated Exposure Control (AEC) and adjustment of mA and kV were utilized.FINDINGSProminent COPD. There are diffuse areas of bronchiectasis favoring the left upper lobe. There is probable biapical scarring accounting for the appearance on chest x-ray. There is an ovoid 1.3 x 0.5 cm nodule in superior aspect of the left lower lobe on image 11 of series 5. It is slightly spiculated.Other smaller slightly nodular densities are seen in the lungs. Many of these densities have an endobronchial appearance but could be mucous plugging. Possible mild honeycombing is seen at both lung bases.There is eventration of the diaphragm. The heart is and thoracic aorta are normal in size. A stent is seen in the left subclavian artery. Diffuse atherosclerotic calcifications are seen in the great vessels and descending thoracic aorta. Small likely reactive mediastinal lymph nodes are seen.IMPRESSIONCOPD changes with bronchiectasis and chronic interstitial lung disease are seen. Chronic interstitial lung disease changes are nonspecificThere is a 1.3 x 0.5 cm nodular density in the superior aspect of the left lower lobe multiple other small nodules in the lungs. Many of these nodules have an endobronchial appearance and some of the nodular densities may be mucous plugging.Recommend further evaluation with PET-CT to evaluate the nodular density in the superior aspect of the left lower lobe of the lungs. Recommend follow-up chest CT in 3 months time to follow the other changes in the lungs.Electronically signed by: Leonardo Sanchez (Jan 20, 2022 11:20:09)
[2022-01-20] MEDS: K-DUR TAB 20 MEQ PO PRN (18:36)
[2022-01-21] MEDS: TORADOL 15 MG VIAL IVP SCH ×3 (01:06→17:24)
[2022-01-21] MEDS: KLONOPIN TAB 0.5 MG PO PRN (04:06)
[2022-01-21] MEDS: SOLU-Medrol 40 MG VIAL IVP SCH ×3 (05:17→21:35)
[2022-01-21 06:05] LABS: BASOPHILS % (AUTO) 0.1 % (0.2-1.0); HEMATOCRIT 37.3 % (36.0-47.0); HEMOGLOBIN 12.9 g/dL (12.0-16.0); LYMPHOCYTES # (AUTO) 0.6 X10^3/uL (1.3-2.9); LYMPHOCYTES % (AUTO) 3.8 % (21.0-51.0); MEAN CORPUSCULAR HEMOGLOBIN 29.8 pg (27.0-34.0); MEAN CORPUSCULAR HGB CONC 34.5 g/dL (33.0-35.0); MEAN CORPUSCULAR VOLUME 86.3 fL (80.0-100.0); MEAN PLATELET VOLUME 9.5 fL (7.4-11.0); MONOCYTES # (AUTO) 0.7 x10^3/uL (0.3-0.8); MONOCYTES % (AUTO) 4.2 % (0.0-13.0); NEUTROPHILS # (AUTO) 15.6 x10^3/uL (2.2-4.8); NEUTROPHILS % (AUTO) 91.9 % (42.0-75.0); RED BLOOD COUNT 4.32 X10^6/uL (3.5-5.4); RED CELL DISTRIBUTION WIDTH 14.7 % (11.6-16.5)
[2022-01-21 06:06] LABS: ALANINE AMINOTRANSFERASE 39 Units/L (12-78); ALBUMIN 2.6 g/dL (3.4-5.0); ALKALINE PHOSPHATASE 58 Units/L (46-116); ASPARTATE AMINO TRANSFERASE 25 Units/L (15-37); BLOOD UREA NITROGEN 23 mg/dL (7-18); CALCIUM 8.9 mg/dL (8.5-10.1); CARBON DIOXIDE 28.2 mmol/L (21-32); CHLORIDE 104 mmol/L (98-107); COR NA(FOR HYPERGLY) 137 mmol/L (136-145); CREATININE 0.86 mg/dL (0.55-1.02); MAGNESIUM 2.2 mg/dL (1.7-2.9); SODIUM 136 mmol/L (136-145); TOTAL PROTEIN 5.5 g/dL (6.4-8.2); eGFR NON BLACK RACES > 60 (>60)
[2022-01-21 06:46] LABS: BAND NEUTROPHILS % 2 % (0-10)
[2022-01-21 06:47] LABS: PLATELET MORPHOLOGY COMMENT NORMAL (NORMAL)
--- NOTE | 2022-01-21 07:12 | RAD ---
HISTORYSOBSTUDYCHEST, 1 VWWFPMOSDKANEJ18/17/2022FINDINGSLINES AND TUBES: NoneHEART/ PULMONARY VASCULATURE: UnchangedLUNGS/ PLEURA: Findings of COPD with biapical pleural parenchymal scarring and scattered bilateral coarse interstitial opacities appear unchanged. No new or increasing airspace consolidation. No pneumothoraxIMPRESSIONStable chronic interstitial lung changes. No evidence of acute process.Electronically signed by: Vernon Sanford (Jan 21, 2022 07:10:39)
[2022-01-21] MEDS: PULMICORT NEB TX 0.5 MG NEB SCH ×2 (08:30→21:32)
[2022-01-21] MEDS: DUONEB 0.5 MG/3 MG (3 mL) NEB SCH ×4 (08:30→21:32)
[2022-01-21] MEDS: LEVAQUIN PREMIX IV 500 MG 500 MG/100 ML BAG IV SCH (09:27)
[2022-01-21] MEDS: UNIPHYL TAB 400 MG 24-HR PO SCH (09:27)
[2022-01-21] MEDS: TOPROL XL PO SCH (09:27)
[2022-01-21] MEDS: NORVASC TAB 5 MG PO SCH (09:28)
[2022-01-21] MEDS: LOVENOX INJ 40 MG SYR SC SCH (09:28)
[2022-01-21] MEDS: SYNTHROID 75 mcg TAB PO SCH (09:28)
[2022-01-21] MEDS: MEGACE PO SCH ×2 (09:28→21:35)
[2022-01-21] MEDS: NS 1,000 ML IV 1,000 ML IV SCH (10:51)
--- NOTE | 2022-01-21 11:24 | PCM.PROG ---
Progress Note Progress Note for Day of Date of Exam: 01/21/22 Subjective Subjective: PT IS A 81 YEAR OLD FEMALE ADMITTED FOR COPD EXACERBATION. THIS MORNING SHE REPORTS HER BREATHING HAS IMPROVED A LITTLE COMPARED TO YESTERDAY. NO ACUTE EVENTS OVERNIGHT. SHE IS CURRENTLY REQUIRING 2L NASAL CANNULA SUPPLEMENTAL OXYGEN THAT IS CLOSE TO HER BASELINE HOME OXYGEN. LABS/IMAGING: WBC 17, HGB 12.9, PLT 291, NA 136, K 4.2, CREATININE 0.86, GLUCOSE 135, BLOOD AND SPUTUM CULTURES PENDING. CHEST XRAY WAS OBTAINED. IT REVEALED: FINDINGS OF COPD. PT IS CURRENTLY RECEIVING NORMAL SALINE AT 75 ML/HR, LEVAQUIN 500MG IV DAILY, SOLU-MEDROL 40MG IV Q8H, DUONEBS QID, PULMICORT NEBS BID, MEGACE 40MG PO BID, THE POTASSIUM AND MAGNESIUM PROTOCOLS, AND HER HOME MEDICATIONS OF AMLODIPINE, THEOPHYLLINE, METOPROLOL, LEVOTHYROXINE, CLONAZEPAM, AND TRAMADOL WERE RESUMED. OTHERWISE, WE PLAN TO FOLLOW-UP WITH AM LABS AND CONTINUE TO MONITOR. Past Medical Family Social History Past Med/Fam/Surg Hx: No changes since H&P Allergies: Allergies codeine Allergy (Verified 11/17/18 14:00) hydrocodone Allergy (Verified 11/17/18 14:00) Review of Systems ROS: No change since H&P Vital Signs and I&O's Vital Signs: Temperature 97.8 F Pulse Rate [Left Radial] 114 Pulse Rate 89 Respiratory Rate 18 Blood Pressure [Left Arm] 149/73 Blood Pressure [Right Arm] 162/78 O2 Sat by Pulse Oximetry 96 Intake and Output: Intake & Output 01/18/22 01/19/22 01/20/22 01/21/22 23:59 23:59 23:59 23:59 Intake Total 310 / 310 2676 / 2676 4103 / 4103 649 / 649 Balance 310 / 310 2676 / 2676 4103 / 4103 649 / 649 Physical Exam Oriented: Normal Eyes: Normal Ear: Normal Nose: Normal Throat: Normal Respiratory: Diminished and Wheezes Cardiovascular: Normal : Normal Auscultation: Bowel Sounds: Normal Palpation: Normal Tenderness: Normal Skin: Normal Musculoskeletal: Normal Psychiatric: Normal Mood Description: Calm Speech Pattern: Clear and Appropriate Laboratory and Diagnostics Result Diagrams: 01/21/22 05:20 01/21/22 05:20 Labs: 01/18/22 17:00 Sputum - Expectorated Sputum Sputum Culture - Preliminary 01/18/22 17:00 Sputum - Expectorated Sputum - Final 01/18/22 17:20 Blood Blood Culture - Preliminary Laboratory WBC 17.0 X10^3/uL (3.6-10.0) H 01/21/22 05:20 RBC 4.32 X10^6/uL (3.5-5.4) 01/21/22 05:20 Hgb 12.9 g/dL (12.0-16.0) 01/21/22 05:20 Hct 37.3 % (36.0-47.0) 01/21/22 05:20 MCV 86.3 fL (80.0-100.0) 01/21/22 05:20 MCH 29.8 pg (27.0-34.0) 01/21/22 05:20 MCHC 34.5 g/dL (33.0-35.0) 01/21/22 05:20 RDW 14.7 % (11.6-16.5) 01/21/22 05:20 Plt Count 291 X10^3/uL (150.0-450.0) 01/21/22 05:20 Plt Count Comment Adequate (ADEQUATE) 01/21/22 05:20 MPV 9.5 fL (7.4-11.0) 01/21/22 05:20 Neut % (Auto) 91.9 % (42.0-75.0) H 01/21/22 05:20 Lymph % (Auto) 3.8 % (21.0-51.0) L 01/21/22 05:20 [place] % (Auto) 4.2 % (0.0-13.0) 01/21/22 05:20 Eos % (Auto) 0.0 % (0.9-2.9) L 01/21/22 05:20 Baso % (Auto) 0.1 % (0.2-1.0) L 01/21/22 05:20 Neut # (Auto) 15.6 x10^3/uL (2.2-4.8) H 01/21/22 05:20 Lymph # (Auto) 0.6 X10^3/uL (1.3-2.9) L 01/21/22 05:20 [place] # (Auto) 0.7 x10^3/uL (0.3-0.8) 01/21/22 05:20 Eos # (Auto) 0.0 x10^3/uL (0.0-0.2) 01/21/22 05:20 Baso # (Auto) 0.0 X10^3/uL (0.0-0.1) 01/21/22 05:20 Absolute Nucleated RBC 0.0 /100WBC 01/21/22 05:20 Total Counted 100 01/21/22 05:20 Neutrophils % (Manual) 87 % (39-76) H 01/21/22 05:20 Band Neutrophils % 2 % (0-10) 01/21/22 05:20 Lymphocytes % (Manual) 4 % (13-43) L 01/21/22 05:20 Monocytes % (Manual) 7 % (4-9) 01/21/22 05:20 Plt Morphology Comment Normal (NORMAL) 01/21/22 05:20 RBC Morphology Normal (NORMAL) 01/21/22 05:20 Sample Site Rb 01/18/22 18:05 ABG pH 7.510 (7.35-7.45) H 01/18/22 18:05 ABG pCO2 43.0 mmHg (35.0-45.0) 01/18/22 18:05 ABG pO2 86.0 mmHg (80.0-100.0) 01/18/22 18:05 ABG HCO3 34.3 mmol/L (22-26) H* 01/18/22 18:05 ABG O2 Saturation 97.0 % (90-100) 01/18/22 18:05 ABG Base Excess 10.2 mmol/L (-2.0-2.0) H 01/18/22 18:05 Prince Test Na 01/18/22 18:05 A-a Gradient 60.0 mmHg 01/18/22 18:05 FiO2 28.0 01/18/22 18:05 Blood Gas Comments Pt yoly well cdn 01/18/22 18:05 Sodium 136 mmol/L (136-145) 01/21/22 05:20 Corrected Sodium 137 mmol/L (136-145) 01/21/22 05:20 Potassium 4.2 mmol/L (3.5-5.1) 01/21/22 05:20 Chloride 104 mmol/L (98-107) 01/21/22 05:20 Carbon Dioxide 28.2 mmol/L (21-32) 01/21/22 05:20 BUN 23 mg/dL (7-18) H 01/21/22 05:20 Creatinine 0.86 mg/dL (0.55-1.02) 01/21/22 05:20 Est GFR (MDRD) Af Amer > 60 (>60) 01/21/22 05:20 Est GFR (MDRD) Non-Af > 60 (>60) 01/21/22 05:20 Glucose 135 mg/dL (65-99) H 01/21/22 05:20 Calcium 8.9 mg/dL (8.5-10.1) 01/21/22 05:20 Corrected Calcium 10.0 mg/dL (8.5-10.1) 01/21/22 05:20 Magnesium 2.2 mg/dL (1.7-2.9) 01/21/22 05:20 Total Bilirubin 0.10 mg/dL (0.2-1.0) L 01/21/22 05:20 AST 25 Units/L (15-37) 01/21/22 05:20 ALT 39 Units/L (12-78) 01/21/22 05:20 Alkaline Phosphatase 58 Units/L (46-116) 01/21/22 05:20 Total Protein 5.5 g/dL (6.4-8.2) L 01/21/22 05:20 Albumin 2.6 g/dL (3.4-5.0) L 01/21/22 05:20 Globulin 2.9 g/dL (2.5-4.5) 01/21/22 05:20 Albumin/Globulin Ratio 0.9 Ratio (1.1-2.1) L 01/21/22 05:20 SARS-CoV-2 (PCR) Negative (NEGATIVE) 01/18/22 17:04 Plan (1) COPD exacerbation: Status: Acute
[2022-01-22] MEDS: NS 1,000 ML IV 1,000 ML IV SCH ×2 (01:01→13:48)
[2022-01-22] MEDS: TORADOL 15 MG VIAL IVP SCH ×3 (01:14→20:32)
[2022-01-22] MEDS: KLONOPIN TAB 0.5 MG PO PRN ×2 (04:12→09:18)
[2022-01-22] MEDS: SOLU-Medrol 40 MG VIAL IVP SCH ×3 (05:27→21:00)
[2022-01-22 05:58] LABS: BASOPHILS % (AUTO) 0.1 % (0.2-1.0); HEMATOCRIT 38.4 % (36.0-47.0); LYMPHOCYTES # (AUTO) 0.6 X10^3/uL (1.3-2.9); LYMPHOCYTES % (AUTO) 3.6 % (21.0-51.0); MEAN CORPUSCULAR HEMOGLOBIN 29.4 pg (27.0-34.0); MEAN CORPUSCULAR HGB CONC 33.8 g/dL (33.0-35.0); MEAN CORPUSCULAR VOLUME 87.1 fL (80.0-100.0); MEAN PLATELET VOLUME 9.6 fL (7.4-11.0); MONOCYTES # (AUTO) 0.5 x10^3/uL (0.3-0.8); MONOCYTES % (AUTO) 3.5 % (0.0-13.0); NEUTROPHILS # (AUTO) 14.3 x10^3/uL (2.2-4.8); NEUTROPHILS % (AUTO) 92.8 % (42.0-75.0); RED BLOOD COUNT 4.41 X10^6/uL (3.5-5.4); RED CELL DISTRIBUTION WIDTH 14.7 % (11.6-16.5); WHITE BLOOD COUNT 15.4 X10^3/uL (3.6-10.0)
--- NOTE | 2022-01-22 06:02 | RAD ---
HISTORYSOBSTUDYCHEST, 1 VIEWCOMPARISONRadiograph from yesterday, 01/21/2022FINDINGSLINES AND TUBES: NoneHEART/ PULMONARY VASCULATURE: UnchangedLUNGS/ PLEURA: Chronic lung changes appear stable. No new or increasing airspace consolidation. No pneumothoraxIMPRESSIONNo significant interval change.Electronically signed by: Vernon Sanford (Jan 22, 2022 06:00:45)
[2022-01-22 06:12] LABS: ALANINE AMINOTRANSFERASE 39 Units/L (12-78); ALBUMIN 2.6 g/dL (3.4-5.0); ALKALINE PHOSPHATASE 55 Units/L (46-116); ASPARTATE AMINO TRANSFERASE 24 Units/L (15-37); BLOOD UREA NITROGEN 21 mg/dL (7-18); CALCIUM 8.6 mg/dL (8.5-10.1); CARBON DIOXIDE 28.3 mmol/L (21-32); CHLORIDE 105 mmol/L (98-107); COR CA(FOR HYPOALB) 9.7 mg/dL (8.5-10.1); COR NA(FOR HYPERGLY) 140 mmol/L (136-145); CREATININE 0.71 mg/dL (0.55-1.02); SODIUM 139 mmol/L (136-145); TOTAL PROTEIN 5.4 g/dL (6.4-8.2); eGFR NON BLACK RACES > 60 (>60)
[2022-01-22 06:29] LABS: BAND NEUTROPHILS % 2 % (0-10)
[2022-01-22 06:30] LABS: PLATELET MORPHOLOGY COMMENT NORMAL (NORMAL)
[2022-01-22] MEDS: DUONEB 0.5 MG/3 MG (3 mL) NEB SCH ×4 (08:23→21:38)
[2022-01-22] MEDS: PULMICORT NEB TX 0.5 MG NEB SCH ×2 (08:23→21:38)
[2022-01-22] MEDS: LEVAQUIN PREMIX IV 500 MG 500 MG/100 ML BAG IV SCH (09:03)
[2022-01-22] MEDS: TOPROL XL PO SCH (09:07)
[2022-01-22] MEDS: NORVASC TAB 5 MG PO SCH (09:12)
[2022-01-22] MEDS: MEGACE PO SCH ×2 (09:12→20:20)
[2022-01-22] MEDS: SYNTHROID 75 mcg TAB PO SCH (09:13)
[2022-01-22] MEDS: UNIPHYL TAB 400 MG 24-HR PO SCH (09:13)
[2022-01-22] MEDS: LOVENOX INJ 40 MG SYR SC SCH (09:14)
--- NOTE | 2022-01-22 10:58 | PCM.PROG ---
Progress Note Progress Note for Day of Date of Exam: 01/22/22 Subjective Subjective: PT IS A 81 YEAR OLD FEMALE ADMITTED FOR COPD EXACERBATION. THIS MORNING HER BREATHING HAS IMPROVED. NO ACUTE EVENTS OVERNIGHT. SHE IS CURRENTLY REQUIRING 2L NASAL CANNULA SUPPLEMENTAL OXYGEN THAT IS AT HER BASELINE HOME OXYGEN. LABS/IMAGING: WBC 15.4, HGB 13, PLT 293, NA 139, K 3.9, CREATININE 0.71, GLUCOSE 154, BLOOD AND SPUTUM CULTURES PENDING, PRELIM POSSIBLE HAEMOPHILIS. CHEST XRAY WAS OBTAINED. IT REVEALED: NO ACUTE CARDIOPULMONARY FINDINGS. PT IS CURRENTLY RECEIVING NORMAL SALINE AT 75 ML/HR, LEVAQUIN 500MG IV DAILY, SOLU- MEDROL 40MG IV Q8H, DUONEBS QID, PULMICORT NEBS BID, MEGACE 40MG PO BID, THE POTASSIUM AND MAGNESIUM PROTOCOLS, AND HER HOME MEDICATIONS OF AMLODIPINE, THEOPHYLLINE, METOPROLOL, LEVOTHYROXINE, CLONAZEPAM, AND TRAMADOL WERE RESUMED. OTHERWISE, WE PLAN TO FOLLOW-UP WITH AM LABS AND CONTINUE TO MONITOR. Past Medical Family Social History Past Med/Fam/Surg Hx: No changes since H&P Allergies: Allergies codeine Allergy (Verified 11/17/18 14:00) hydrocodone Allergy (Verified 11/17/18 14:00) Review of Systems ROS: No change since H&P Vital Signs and I&O's Vital Signs: Temperature 98.1 F Pulse Rate [Left Radial] 112 Pulse Rate 108 Respiratory Rate 20 Blood Pressure [Left Arm] 149/73 Blood Pressure [Right Arm] 176/87 O2 Sat by Pulse Oximetry 98 Intake and Output: Intake & Output 01/19/22 01/20/22 01/21/22 01/22/22 23:59 23:59 23:59 23:59 Intake Total 2676 / 2676 4103 / 4103 2592 / 2592 1135 / 1135 Balance 2676 / 2676 4103 / 4103 2592 / 2592 1135 / 1135 Physical Exam Oriented: Normal Eyes: Normal Ear: Normal Nose: Normal Throat: Normal Respiratory: Diminished Cardiovascular: Normal : Normal Auscultation: Bowel Sounds: Normal Tenderness: Normal Skin: Normal Musculoskeletal: Normal Psychiatric: Normal Mood Description: Calm Speech Pattern: Clear and Appropriate Laboratory and Diagnostics Result Diagrams: 01/22/22 05:19 01/22/22 05:19 Labs: 01/18/22 17:00 Sputum - Expectorated Sputum Sputum Culture - Preliminary 01/18/22 17:00 Sputum - Expectorated Sputum - Final 01/18/22 17:20 Blood Blood Culture - Preliminary Laboratory WBC 15.4 X10^3/uL (3.6-10.0) H 01/22/22 05:19 RBC 4.41 X10^6/uL (3.5-5.4) 01/22/22 05:19 Hgb 13.0 g/dL (12.0-16.0) 01/22/22 05:19 Hct 38.4 % (36.0-47.0) 01/22/22 05:19 MCV 87.1 fL (80.0-100.0) 01/22/22 05:19 MCH 29.4 pg (27.0-34.0) 01/22/22 05:19 MCHC 33.8 g/dL (33.0-35.0) 01/22/22 05:19 RDW 14.7 % (11.6-16.5) 01/22/22 05:19 Plt Count 293 X10^3/uL (150.0-450.0) 01/22/22 05:19 Plt Count Comment Adequate (ADEQUATE) 01/22/22 05:19 MPV 9.6 fL (7.4-11.0) 01/22/22 05:19 Neut % (Auto) 92.8 % (42.0-75.0) H 01/22/22 05:19 Lymph % (Auto) 3.6 % (21.0-51.0) L 01/22/22 05:19 [place] % (Auto) 3.5 % (0.0-13.0) 01/22/22 05:19 Eos % (Auto) 0.0 % (0.9-2.9) L 01/22/22 05:19 Baso % (Auto) 0.1 % (0.2-1.0) L 01/22/22 05:19 Neut # (Auto) 14.3 x10^3/uL (2.2-4.8) H 01/22/22 05:19 Lymph # (Auto) 0.6 X10^3/uL (1.3-2.9) L 01/22/22 05:19 [place] # (Auto) 0.5 x10^3/uL (0.3-0.8) 01/22/22 05:19 Eos # (Auto) 0.0 x10^3/uL (0.0-0.2) 01/22/22 05:19 Baso # (Auto) 0.0 X10^3/uL (0.0-0.1) 01/22/22 05:19 Absolute Nucleated RBC 0.0 /100WBC 01/22/22 05:19 Total Counted 100 01/22/22 05:19 Neutrophils % (Manual) 92 % (39-76) H 01/22/22 05:19 Band Neutrophils % 2 % (0-10) 01/22/22 05:19 Lymphocytes % (Manual) 4 % (13-43) L 01/22/22 05:19 Monocytes % (Manual) 2 % (4-9) L 01/22/22 05:19 Plt Morphology Comment Normal (NORMAL) 01/22/22 05:19 RBC Morphology Normal (NORMAL) 01/22/22 05:19 Sample Site Rb 01/18/22 18:05 ABG pH 7.510 (7.35-7.45) H 01/18/22 18:05 ABG pCO2 43.0 mmHg (35.0-45.0) 01/18/22 18:05 ABG pO2 86.0 mmHg (80.0-100.0) 01/18/22 18:05 ABG HCO3 34.3 mmol/L (22-26) H* 01/18/22 18:05 ABG O2 Saturation 97.0 % (90-100) 01/18/22 18:05 ABG Base Excess 10.2 mmol/L (-2.0-2.0) H 01/18/22 18:05 Prince Test Na 01/18/22 18:05 A-a Gradient 60.0 mmHg 01/18/22 18:05 FiO2 28.0 01/18/22 18:05 Blood Gas Comments Pt yoly well cdn 01/18/22 18:05 Sodium 139 mmol/L (136-145) 01/22/22 05:19 Corrected Sodium 140 mmol/L (136-145) 01/22/22 05:19 Potassium 3.9 mmol/L (3.5-5.1) 01/22/22 05:19 Chloride 105 mmol/L (98-107) 01/22/22 05:19 Carbon Dioxide 28.3 mmol/L (21-32) 01/22/22 05:19 BUN 21 mg/dL (7-18) H 01/22/22 05:19 Creatinine 0.71 mg/dL (0.55-1.02) 01/22/22 05:19 Est GFR (MDRD) Af Amer > 60 (>60) 01/22/22 05:19 Est GFR (MDRD) Non-Af > 60 (>60) 01/22/22 05:19 Glucose 154 mg/dL (65-99) H 01/22/22 05:19 Calcium 8.6 mg/dL (8.5-10.1) 01/22/22 05:19 Corrected Calcium 9.7 mg/dL (8.5-10.1) 01/22/22 05:19 Magnesium 2.2 mg/dL (1.7-2.9) 01/21/22 05:20 Total Bilirubin 0.20 mg/dL (0.2-1.0) 01/22/22 05:19 AST 24 Units/L (15-37) 01/22/22 05:19 ALT 39 Units/L (12-78) 01/22/22 05:19 Alkaline Phosphatase 55 Units/L (46-116) 01/22/22 05:19 Total Protein 5.4 g/dL (6.4-8.2) L 01/22/22 05:19 Albumin 2.6 g/dL (3.4-5.0) L 01/22/22 05:19 Globulin 2.8 g/dL (2.5-4.5) 01/22/22 05:19 Albumin/Globulin Ratio 0.9 Ratio (1.1-2.1) L 01/22/22 05:19 SARS-CoV-2 (PCR) Negative (NEGATIVE) 01/18/22 17:04 Plan (1) COPD exacerbation: Status: Acute
[2022-01-22] MEDS: PEPCID TAB 20 MG PO SCH (20:20)
[2022-01-23] MEDS: TORADOL 15 MG VIAL IVP SCH ×3 (01:12→17:39)
[2022-01-23] MEDS: NS 1,000 ML IV 1,000 ML IV SCH ×4 (02:35→22:05)
[2022-01-23 04:48] LABS: BASOPHILS % (AUTO) 0.1 % (0.2-1.0); HEMATOCRIT 39.4 % (36.0-47.0); HEMOGLOBIN 13.4 g/dL (12.0-16.0); LYMPHOCYTES # (AUTO) 0.6 X10^3/uL (1.3-2.9); LYMPHOCYTES % (AUTO) 3.1 % (21.0-51.0); MEAN CORPUSCULAR HEMOGLOBIN 29.6 pg (27.0-34.0); MEAN CORPUSCULAR HGB CONC 34.1 g/dL (33.0-35.0); MEAN CORPUSCULAR VOLUME 86.8 fL (80.0-100.0); MEAN PLATELET VOLUME 9.8 fL (7.4-11.0); MONOCYTES # (AUTO) 0.7 x10^3/uL (0.3-0.8); MONOCYTES % (AUTO) 3.8 % (0.0-13.0); RED BLOOD COUNT 4.54 X10^6/uL (3.5-5.4); RED CELL DISTRIBUTION WIDTH 14.6 % (11.6-16.5); WHITE BLOOD COUNT 18.3 X10^3/uL (3.6-10.0)
[2022-01-23 05:03] LABS: ALANINE AMINOTRANSFERASE 41 Units/L (12-78); ALBUMIN 2.5 g/dL (3.4-5.0); ALKALINE PHOSPHATASE 56 Units/L (46-116); ASPARTATE AMINO TRANSFERASE 22 Units/L (15-37); BLOOD UREA NITROGEN 21 mg/dL (7-18); CALCIUM 8.6 mg/dL (8.5-10.1); CHLORIDE 105 mmol/L (98-107); COR CA(FOR HYPOALB) 9.8 mg/dL (8.5-10.1); COR NA(FOR HYPERGLY) 140 mmol/L (136-145); SODIUM 138 mmol/L (136-145); TOTAL PROTEIN 5.3 g/dL (6.4-8.2); eGFR NON BLACK RACES > 60 (>60)
[2022-01-23 05:15] LABS: PLATELET MORPHOLOGY COMMENT NORMAL (NORMAL)
[2022-01-23] MEDS: SOLU-Medrol 40 MG VIAL IVP SCH ×3 (05:16→22:05)
--- NOTE | 2022-01-23 06:36 | RAD ---
HISTORYShortness of breath, COPDSTUDYChest AP [id number]/19/2022FINDINGSHear t size is normal. Bhumika are normal. Lungs remain hyperinflated. Bilateral apical pleural parenchymal scarring is present not significantly different from the prior examination. Chronic interstitial lung changes also stable. No acute alveolar infiltrates or pleural effusions are identified. Bony thorax is unremarkable.IMPRESSIONLungs hyperinflated but free of acute infiltrates. Consistent with COPD in the appropriate clinical settingMild chronic interstitial lung changes bilaterally, stableBiapical pleural parenchymal scarring also stableElectronically signed by: ABIGAIL PASCUAL (Jan 23, 2022 06:35:18)
[2022-01-23] MEDS: LEVAQUIN PREMIX IV 500 MG 500 MG/100 ML BAG IV SCH (08:18)
[2022-01-23] MEDS: MEGACE PO SCH ×2 (08:18→20:48)
[2022-01-23] MEDS: PEPCID TAB 20 MG PO SCH ×2 (08:19→20:49)
[2022-01-23] MEDS: NORVASC TAB 5 MG PO SCH (08:19)
[2022-01-23] MEDS: SYNTHROID 75 mcg TAB PO SCH (08:19)
[2022-01-23] MEDS: LOVENOX INJ 40 MG SYR SC SCH (08:20)
[2022-01-23] MEDS: UNIPHYL TAB 400 MG 24-HR PO SCH (08:20)
[2022-01-23] MEDS: TOPROL XL PO SCH (08:20)
[2022-01-23] MEDS: PULMICORT NEB TX 0.5 MG NEB SCH ×2 (08:30→20:20)
[2022-01-23] MEDS: DUONEB 0.5 MG/3 MG (3 mL) NEB SCH ×4 (08:30→20:20)
--- NOTE | 2022-01-23 17:16 | PCM.PROG ---
Progress Note - Progress Note for Day of Date of Exam: 01/23/22 - Subjective Subjective: WAS ADMITTED FOR TREATMENT OF TREATMENT OF COPD EXACERBATION WITH ACUTE BRONCHITIS. SHE HAS HAD AN UNEVENTFUL WEEKEND. TODAY, SHE IS ALERT AND ORIENTED, LYING IN BED ON MORNING ROUNDS. SHE CONTINUES WITH COMPLAINTS OF SHORTNESS OF BREATH AND COUGH, BUT REPORTS IMPROVEMENT IN SYMPTOMS SINCE ADMISSION. SHE IS CURRENTLY UTILIZING NASAL CANNULA AT 2 LPM. OXYGEN SATURATIONS HAVE REMAINED IN THE 90s. ON EXAMINATION, HEART IS REGULAR IN RATE AND RHYTHM. BILATERAL LUNGS ARE NOTED WITH DIMINISHED LUNG SOUNDS THROUGHOUT. ABDOMEN IS ROUND, SOFT, AND NON-TENDER WITH NORAML BOWEL SOUNDS NOTED IN ALL QUADRANTS. NO UPPER OR LOWER EXTREMITY EDEMA NOTED. HIS VITALS THIS MORNING ARE: 98.1-97-20-100%-137/89. LABS WERE OBTAINED. WBC 18.3, RBC 4.54, HGB 13.4, HCT 39.4, PLT COUNT 276, SODIUM 137, POTASSIUM 3.8, BUN 21, CREATININE 0.70, GLUCOSE 168, TOTAL PROTEIN 5.3, ALBUMIN 2.5. A CHEST XRAY WAS OBTAINED. IT REVEALED: Lungs hyperinflated but free of acute infiltrates. Consistent with COPD in the appropriate clinical setting. Mild chronic interstitial lung changes bilaterally, stable. Biapical pleural parenchymal scarring also stable. SHE HAD A CHEST CT ON SUNDAY. IT REVEALED: COPD changes with bronchiectasis and chronic interstitial lung disease are seen. Chronic interstitial lung disease changes are nonspecific. There is a 1.3 x 0.5 cm nodular density in the superior aspect of the left lower lobe multiple other small nodules in the lungs. Many of these nodules have an endobronchial appearance and some of the nodular densities may be mucous plugging. Recommend further evaluation with PET-CT to evaluate the nodular density in the superior aspect of the left lower lobe of the lungs. Recommend follow-up chest CT in 3 months time to follow the other changes in the lungs. HER MANAGER PATIENT, , IS AWARE OF THE NODULES AND HAS BEEN FOLLOWING CLOSELY. SHE IS CURRENTLY RECEIVING NORMAL SALINE AT 75 ML/HR, LEVAQUIN 500MG IV DAILY, SOLU-MEDROL 40MG IV Q8H, DUONEBS QID, PULMICORT NEBS BID, MEGACE 40MG PO BID, PEPCID 20MG PO BID, THE POTASSIUM AND MAGNESIUM PROTOCOLS, AND HER HOME MEDICATIONS OF AMLODIPINE, THEOPHYLLINE, METOPROLOL, LEVOTHYROXINE, CLONAZEPAM, AND TRAMADOL WERE RESUMED. WE WILL CONTINUE WITH CURRENT PLAN OF CARE TODAY. OTHERWISE, WE WILL FOLLOW-UP WITH AM LABS AND CHEST XRAY AND CONTINUE TO MONITOR. TIME SPENT ON CLINICAL ASSESSMENT, REVIEWING LABS AND IMAGING, DECISION MAKING, AND DOCUMENTATION GREATER THAN 45 MINUTES. - Past Medical Family Social History Past Med/Fam/Surg Hx: No changes since H&P Allergies: Allergies codeine Allergy (Verified 11/17/18 14:00) hydrocodone Allergy (Verified 11/17/18 14:00) - Review of Systems ROS: No change since H&P - Vital Signs and I&O's Vital Signs: Temperature 99.4 F Pulse Rate [Brachial] 94 Pulse Rate [Left Radial] 98 Pulse Rate 88 Respiratory Rate 20 Blood Pressure [Left Arm] 160/74 Blood Pressure [Right Arm] 173/81 O2 Sat by Pulse Oximetry 98 Intake and Output: Intake & Output 01/21/22 01/22/22 01/23/22 01/24/22 11:59 11:59 11:59 11:59 Intake Total 4252 / 4252 3078 / 3078 2368 / 2368 1221 / 1221 Balance 4252 / 4252 3078 / 3078 2368 / 2368 1221 / 1221 - Physical Exam Oriented: Normal Eyes: Normal Ear: Normal Nose: Normal Throat: Normal Respiratory: Diminished Cardiovascular: Normal : Normal Auscultation: Bowel Sounds: Normal Palpation: Normal Tenderness: Normal Skin: Normal Musculoskeletal: Normal Psychiatric: Normal Mood Description: Calm Affect: Normal Speech Pattern: Clear, Appropriate - Laboratory and Diagnostics Result Diagrams: 01/23/22 04:15 01/23/22 04:15 Labs: 01/18/22 17:00 Sputum - Expectorated Sputum Sputum Culture - Preliminary 01/18/22 17:00 Sputum - Expectorated Sputum - Final 01/18/22 17:20 Blood Blood Culture - Preliminary Laboratory WBC 18.3 X10^3/uL (3.6-10.0) H 01/23/22 04:15 RBC 4.54 X10^6/uL (3.5-5.4) 01/23/22 04:15 Hgb 13.4 g/dL (12.0-16.0) 01/23/22 04:15 Hct 39.4 % (36.0-47.0) 01/23/22 04:15 MCV 86.8 fL (80.0-100.0) 01/23/22 04:15 MCH 29.6 pg (27.0-34.0) 01/23/22 04:15 MCHC 34.1 g/dL (33.0-35.0) 01/23/22 04:15 RDW 14.6 % (11.6-16.5) 01/23/22 04:15 Plt Count 276 X10^3/uL (150.0-450.0) 01/23/22 04:15 Plt Count Comment Adequate (ADEQUATE) 01/23/22 04:15 MPV 9.8 fL (7.4-11.0) 01/23/22 04:15 Neut % (Auto) 93.0 % (42.0-75.0) H 01/23/22 04:15 Lymph % (Auto) 3.1 % (21.0-51.0) L 01/23/22 04:15 [place] % (Auto) 3.8 % (0.0-13.0) 01/23/22 04:15 Eos % (Auto) 0.0 % (0.9-2.9) L 01/23/22 04:15 Baso % (Auto) 0.1 % (0.2-1.0) L 01/23/22 04:15 Neut # (Auto) 17.0 x10^3/uL (2.2-4.8) H 01/23/22 04:15 Lymph # (Auto) 0.6 X10^3/uL (1.3-2.9) L 01/23/22 04:15 [place] # (Auto) 0.7 x10^3/uL (0.3-0.8) 01/23/22 04:15 Eos # (Auto) 0.0 x10^3/uL (0.0-0.2) 01/23/22 04:15 Baso # (Auto) 0.0 X10^3/uL (0.0-0.1) 01/23/22 04:15 Absolute Nucleated RBC 0.0 /100WBC 01/23/22 04:15 Total Counted 100 01/23/22 04:15 Neutrophils % (Manual) 96 % (39-76) H 01/23/22 04:15 Band Neutrophils % 2 % (0-10) 01/22/22 05:19 Lymphocytes % (Manual) 3 % (13-43) L 01/23/22 04:15 Monocytes % (Manual) 1 % (4-9) L 01/23/22 04:15 Plt Morphology Comment Normal (NORMAL) 01/23/22 04:15 RBC Morphology Normal (NORMAL) 01/23/22 04:15 Sample Site Rb 01/18/22 18:05 ABG pH 7.510 (7.35-7.45) H 01/18/22 18:05 ABG pCO2 43.0 mmHg (35.0-45.0) 01/18/22 18:05 ABG pO2 86.0 mmHg (80.0-100.0) 01/18/22 18:05 ABG HCO3 34.3 mmol/L (22-26) H* 01/18/22 18:05 ABG O2 Saturation 97.0 % (90-100) 01/18/22 18:05 ABG Base Excess 10.2 mmol/L (-2.0-2.0) H 01/18/22 18:05 Prince Test Na 01/18/22 18:05 A-a Gradient 60.0 mmHg 01/18/22 18:05 FiO2 28.0 01/18/22 18:05 Blood Gas Comments Pt yoly well cdn 01/18/22 18:05 Sodium 138 mmol/L (136-145) 01/23/22 04:15 Corrected Sodium 140 mmol/L (136-145) 01/23/22 04:15 Potassium 3.8 mmol/L (3.5-5.1) 01/23/22 04:15 Chloride 105 mmol/L (98-107) 01/23/22 04:15 Carbon Dioxide 29.0 mmol/L (21-32) 01/23/22 04:15 BUN 21 mg/dL (7-18) H 01/23/22 04:15 Creatinine 0.70 mg/dL (0.55-1.02) 01/23/22 04:15 Est GFR (MDRD) Af Amer > 60 (>60) 01/23/22 04:15 Est GFR (MDRD) Non-Af > 60 (>60) 01/23/22 04:15 Glucose 168 mg/dL (65-99) H 01/23/22 04:15 Calcium 8.6 mg/dL (8.5-10.1) 01/23/22 04:15 Corrected Calcium 9.8 mg/dL (8.5-10.1) 01/23/22 04:15 Magnesium 2.2 mg/dL (1.7-2.9) 01/21/22 05:20 Total Bilirubin 0.30 mg/dL (0.2-1.0) 01/23/22 04:15 AST 22 Units/L (15-37) 01/23/22 04:15 ALT 41 Units/L (12-78) 01/23/22 04:15 Alkaline Phosphatase 56 Units/L (46-116) 01/23/22 04:15 Total Protein 5.3 g/dL (6.4-8.2) L 01/23/22 04:15 Albumin 2.5 g/dL (3.4-5.0) L 01/23/22 04:15 Globulin 2.8 g/dL (2.5-4.5) 01/23/22 04:15 Albumin/Globulin Ratio 0.9 Ratio (1.1-2.1) L 01/23/22 04:15 SARS-CoV-2 (PCR) Negative (NEGATIVE) 01/18/22 17:04 - Plan (1) COPD exacerbation Status: Acute Plan: NORMAL SALINE AT 75 ML/HR, LEVAQUIN 500MG IV DAILY, SOLU-MEDROL 40MG IV Q8H, DUONEBS QID, PULMICORT NEBS BID, MEGACE 40MG PO BID, PEPCID 20MG PO BID, THE POTASSIUM AND MAGNESIUM PROTOCOLS, AND HER HOME MEDICATIONS OF AMLODIPINE, THEOPHYLLINE, METOPROLOL, LEVOTHYROXINE, CLONAZEPAM, AND TRAMADOL WERE RESUMED. (2) Acute bronchitis Status: Acute Qualifiers: Bronchitis organism: unspecified organism Qualified Code(s): J20.9 - Acute bronchitis, unspecified (3) Multiple pulmonary nodules Status: Acute (4) Essential hypertension Status: Chronic (5) Coronary arteriosclerosis Status: Chronic (6) Generalized anxiety disorder Status: Chronic (7) Hyperlipidemia Status: Chronic (8) Hypothyroidism Status: Chronic
[2022-01-23 17:40] LABS: BILIRUBIN,URINE NEGATIVE (NEGATIVE); BLOOD/HEMOGLOBIN,URINE 5+ (NEGATIVE); GLUCOSE, URINE NEGATIVE (NEGATIVE); KETONES,URINE NEGATIVE (NEGATIVE); LEUKOCYTE ESTERASE ,URINE 3+ (NEGATIVE); NITRITES,URINE NEGATIVE (NEGATIVE); PROTEIN,URINE NEGATIVE (NEGATIVE); UROBILINOGEN,URINE NORMAL (NORMAL)
[2022-01-23 17:48] LABS: APPEARANCE,URINE SLIGHTLY HAZY (CLEAR); COLOR,URINE YELLOW (YELLOW)
[2022-01-23 17:49] LABS: BACTERIA,URINE 2+ /HPF (NEGATIVE); RBC,URINE 0-2 /HPF (0-3); SQUAMOUS EPITHELIAL CELL,UR MANY /HPF (NEGATIVE)
--- NOTE | 2022-01-23 18:09 | PCM.PROG ---
Progress Note - Progress Note for Day of Date of Exam: 01/20/22 - Subjective Subjective: WAS ADMITTED FOR TREATMENT OF TREATMENT OF COPD EXACERBATION WITH ACUTE BRONCHITIS AND INTRACTABLE BACK PAIN. TODAY, SHE IS ALERT AND ORIENTED, LYING IN BED ON MORNING ROUNDS. SHE CONTINUES WITH COMPLAINTS OF SHORTNESS OF BREATH, COUGH, AND LOW BACK PAIN. SHE IS CURRENTLY UTILIZING NASAL CANNULA AT 2 LPM. OXYGEN SATURATIONS HAVE REMAINED IN THE 90s. ON EXAMINATION, HEART IS REGULAR IN RATE AND RHYTHM. BILATERAL LUNGS ARE NOTED WITH DIMINISHED LUNG SOUNDS THROUGHOUT. ABDOMEN IS ROUND, SOFT, AND NON-TENDER WITH NORAML BOWEL SOUNDS NOTED IN ALL QUADRANTS. NO UPPER OR LOWER EXTREMITY EDEMA NOTED. TENDERNESS NOTED TO LUMBAR SPINE. HER VITALS THIS MORNING ARE: 97.9-94-18-98%-148/78. LABS WERE OBTAINED. WBC 14.7, RBC 4.39, HGB 13.0, HCT 37.8, PLT COUNT 299, SODIUM 136, POTASSIUM 3.2, CHLORIDE 101, BUN 17, CREATININE 0.73, GLUCOSE 168, CALCIUM 9.1, MAGNESIUM 1.9, TOTAL BILI 0.10, AST 20, ALT 26, ALK PHOS 63, TOTAL PROTEIN 6.3, ALBUMIN 3.0. A CHEST XRAY WAS OBTAINED. IT REVEALED: Cardiac and mediastinal contours are within normal limits. Background of COPD. Stable bilateral scattered interstitial opacities. Blunted costophrenic sulci appears similar. No discernible pneumothorax. Biapical opacities are present, with nodular opacity at the right apex more conspicuous than prior. Consider CT to further evaluate nodular right apical opacity. Otherwise similar appearance to prior. SHE IS CURRENTLY RECEIVING NORMAL SALINE AT 75 ML/HR, LEVAQUIN 500MG IV DAILY, SOLU-MEDROL 40MG IV Q8H, DUONEBS QID, PULMICORT NEBS BID, MEGACE 40MG PO BID, THE POTASSIUM AND MAGNESIUM PROTOCOLS, AND HER HOME MEDICATIONS OF AMLODIPINE, THEOPHYLLINE, METOPROLOL, LEVOTHYROXINE, CLONAZEPAM, AND TRAMADOL WERE RESUMED. WE WILL OBTAIN A CHEST CT TO FURTHER ASSESS NODULES. WE WILL INCREASE TRAMADOL TO 100MG QID AND ADD TORADOL 30MG IV Q8H. OTHERWISE, WE WILL CONTINUE WITH CURRENT PLAN OF CARE TODAY. WE WILL FOLLOW-UP WITH AM LABS AND CHEST XRAY AND CONTINUE TO MONITOR. TIME SPENT ON CLINICAL ASSESSMENT, REVIEWING LABS AND IMAGING, DECISION MAKING, AND DOCUMENTATION GREATER THAN 45 MINUTES. - Past Medical Family Social History Past Med/Fam/Surg Hx: No changes since H&P Allergies: Allergies codeine Allergy (Verified 11/17/18 14:00) hydrocodone Allergy (Verified 11/17/18 14:00) - Review of Systems ROS: No change since H&P - Vital Signs and I&O's Vital Signs: Temperature 99.4 F Pulse Rate [Brachial] 94 Pulse Rate [Left Radial] 98 Pulse Rate 88 Respiratory Rate 20 Blood Pressure [Left Arm] 160/74 Blood Pressure [Right Arm] 173/81 O2 Sat by Pulse Oximetry 98 Intake and Output: Intake & Output 01/21/22 01/22/22 01/23/22 01/24/22 11:59 11:59 11:59 11:59 Intake Total 4252 / 4252 3078 / 3078 2368 / 2368 1221 / 1221 Balance 4252 / 4252 3078 / 3078 2368 / 2368 1221 / 1221 - Physical Exam Oriented: Normal Eyes: Normal Ear: Normal Nose: Normal Throat: Normal Respiratory: Diminished Cardiovascular: Normal : Normal Auscultation: Bowel Sounds: Normal Palpation: Normal Tenderness: Normal Skin: Normal Musculoskeletal: Normal Psychiatric: Normal Mood Description: Calm Affect: Normal Speech Pattern: Clear, Appropriate - Laboratory and Diagnostics Result Diagrams: 01/23/22 04:15 01/23/22 04:15 Labs: 01/18/22 17:00 Sputum - Expectorated Sputum Sputum Culture - Preliminary 01/18/22 17:00 Sputum - Expectorated Sputum - Final 01/18/22 17:20 Blood Blood Culture - Preliminary Laboratory WBC 18.3 X10^3/uL (3.6-10.0) H 01/23/22 04:15 RBC 4.54 X10^6/uL (3.5-5.4) 01/23/22 04:15 Hgb 13.4 g/dL (12.0-16.0) 01/23/22 04:15 Hct 39.4 % (36.0-47.0) 01/23/22 04:15 MCV 86.8 fL (80.0-100.0) 01/23/22 04:15 MCH 29.6 pg (27.0-34.0) 01/23/22 04:15 MCHC 34.1 g/dL (33.0-35.0) 01/23/22 04:15 RDW 14.6 % (11.6-16.5) 01/23/22 04:15 Plt Count 276 X10^3/uL (150.0-450.0) 01/23/22 04:15 Plt Count Comment Adequate (ADEQUATE) 01/23/22 04:15 MPV 9.8 fL (7.4-11.0) 01/23/22 04:15 Neut % (Auto) 93.0 % (42.0-75.0) H 01/23/22 04:15 Lymph % (Auto) 3.1 % (21.0-51.0) L 01/23/22 04:15 [place] % (Auto) 3.8 % (0.0-13.0) 01/23/22 04:15 Eos % (Auto) 0.0 % (0.9-2.9) L 01/23/22 04:15 Baso % (Auto) 0.1 % (0.2-1.0) L 01/23/22 04:15 Neut # (Auto) 17.0 x10^3/uL (2.2-4.8) H 01/23/22 04:15 Lymph # (Auto) 0.6 X10^3/uL (1.3-2.9) L 01/23/22 04:15 [place] # (Auto) 0.7 x10^3/uL (0.3-0.8) 01/23/22 04:15 Eos # (Auto) 0.0 x10^3/uL (0.0-0.2) 01/23/22 04:15 Baso # (Auto) 0.0 X10^3/uL (0.0-0.1) 01/23/22 04:15 Absolute Nucleated RBC 0.0 /100WBC 01/23/22 04:15 Total Counted 100 01/23/22 04:15 Neutrophils % (Manual) 96 % (39-76) H 01/23/22 04:15 Band Neutrophils % 2 % (0-10) 01/22/22 05:19 Lymphocytes % (Manual) 3 % (13-43) L 01/23/22 04:15 Monocytes % (Manual) 1 % (4-9) L 01/23/22 04:15 Plt Morphology Comment Normal (NORMAL) 01/23/22 04:15 RBC Morphology Normal (NORMAL) 01/23/22 04:15 Sample Site Rb 01/18/22 18:05 ABG pH 7.510 (7.35-7.45) H 01/18/22 18:05 ABG pCO2 43.0 mmHg (35.0-45.0) 01/18/22 18:05 ABG pO2 86.0 mmHg (80.0-100.0) 01/18/22 18:05 ABG HCO3 34.3 mmol/L (22-26) H* 01/18/22 18:05 ABG O2 Saturation 97.0 % (90-100) 01/18/22 18:05 ABG Base Excess 10.2 mmol/L (-2.0-2.0) H 01/18/22 18:05 Prince Test Na 01/18/22 18:05 A-a Gradient 60.0 mmHg 01/18/22 18:05 FiO2 28.0 01/18/22 18:05 Blood Gas Comments Pt yoly well cdn 01/18/22 18:05 Sodium 138 mmol/L (136-145) 01/23/22 04:15 Corrected Sodium 140 mmol/L (136-145) 01/23/22 04:15 Potassium 3.8 mmol/L (3.5-5.1) 01/23/22 04:15 Chloride 105 mmol/L (98-107) 01/23/22 04:15 Carbon Dioxide 29.0 mmol/L (21-32) 01/23/22 04:15 BUN 21 mg/dL (7-18) H 01/23/22 04:15 Creatinine 0.70 mg/dL (0.55-1.02) 01/23/22 04:15 Est GFR (MDRD) Af Amer > 60 (>60) 01/23/22 04:15 Est GFR (MDRD) Non-Af > 60 (>60) 01/23/22 04:15 Glucose 168 mg/dL (65-99) H 01/23/22 04:15 Calcium 8.6 mg/dL (8.5-10.1) 01/23/22 04:15 Corrected Calcium 9.8 mg/dL (8.5-10.1) 01/23/22 04:15 Magnesium 2.2 mg/dL (1.7-2.9) 01/21/22 05:20 Total Bilirubin 0.30 mg/dL (0.2-1.0) 01/23/22 04:15 AST 22 Units/L (15-37) 01/23/22 04:15 ALT 41 Units/L (12-78) 01/23/22 04:15 Alkaline Phosphatase 56 Units/L (46-116) 01/23/22 04:15 Total Protein 5.3 g/dL (6.4-8.2) L 01/23/22 04:15 Albumin 2.5 g/dL (3.4-5.0) L 01/23/22 04:15 Globulin 2.8 g/dL (2.5-4.5) 01/23/22 04:15 Albumin/Globulin Ratio 0.9 Ratio (1.1-2.1) L 01/23/22 04:15 Specimen Type Clean catch urine 01/23/22 17:25 Urine Color Yellow (YELLOW) 01/23/22 17: Urine Appearance Slightly hazy (CLEAR) 01/23/22 17:25 Urine pH 6.0 (5.0 - 8.0) 01/23/22 17:25 Ur Specific [place] 1.015 (1.000-1.030) 01/23/22 17:25 Urine Protein Negative (NEGATIVE) 01/23/22 17: Urine Glucose (UA) Negative (NEGATIVE) 01/23/22 17: Urine Ketones Negative (NEGATIVE) 01/23/22 17: Urine Blood 5+ (NEGATIVE) 01/23/22 17: Urine Nitrite Negative (NEGATIVE) 01/23/22 17: Urine Bilirubin Negative (NEGATIVE) 01/23/22 17:25 Urine Urobilinogen Normal (NORMAL) 01/23/22 17:25 Ur Leukocyte Esterase 3+ (NEGATIVE) 01/23/22 17: Urine RBC 0-2 /HPF (0-3) 01/23/22 17:25 Urine WBC 5-10 /HPF (0-5) A 01/23/22 17:25 Ur Squamous Epith Cells Many /HPF (NEGATIVE) 01/23/22 17: Urine Bacteria 2+ /HPF (NEGATIVE) 01/23/22 17:25 Ur Culture Indicated? No/not indicated 01/23/22 17:25 SARS-CoV-2 (PCR) Negative (NEGATIVE) 01/18/22 17:04 - Plan (1) COPD exacerbation Status: Acute Plan: NORMAL SALINE AT 75 ML/HR, LEVAQUIN 500MG IV DAILY, SOLU-MEDROL 40MG IV Q8H, DUONEBS QID, PULMICORT NEBS BID, MEGACE 40MG PO BID, PEPCID 20MG PO BID, THE POTASSIUM AND MAGNESIUM PROTOCOLS, AND HER HOME MEDICATIONS OF AMLODIPINE, THEOPHYLLINE, METOPROLOL, LEVOTHYROXINE, CLONAZEPAM, AND TRAMADOL WERE RESUMED. (2) Acute bronchitis Status: Acute Qualifiers: Bronchitis organism: unspecified organism Qualified Code(s): J20.9 - Acute bronchitis, unspecified (3) Essential hypertension Status: Chronic (4) Coronary arteriosclerosis Status: Chronic (5) Generalized anxiety disorder Status: Chronic (6) Hyperlipidemia Status: Chronic (7) Hypothyroidism Status: Chronic
[2022-01-24] MEDS: TORADOL 15 MG VIAL IVP SCH ×3 (02:36→17:08)
[2022-01-24] MEDS: NS 1,000 ML IV 1,000 ML IV SCH ×3 (04:18→16:02)
[2022-01-24 05:22] LABS: BASOPHILS % (AUTO) 0 % (0.2-1.0); HEMATOCRIT 38.1 % (36.0-47.0); LYMPHOCYTES # (AUTO) 0.5 X10^3/uL (1.3-2.9); LYMPHOCYTES % (AUTO) 2.7 % (21.0-51.0); MEAN CORPUSCULAR HEMOGLOBIN 29.8 pg (27.0-34.0); MEAN CORPUSCULAR HGB CONC 34.1 g/dL (33.0-35.0); MEAN CORPUSCULAR VOLUME 87.4 fL (80.0-100.0); MEAN PLATELET VOLUME 9.9 fL (7.4-11.0); MONOCYTES # (AUTO) 0.7 x10^3/uL (0.3-0.8); MONOCYTES % (AUTO) 3.5 % (0.0-13.0); NEUTROPHILS # (AUTO) 17.8 x10^3/uL (2.2-4.8); NEUTROPHILS % (AUTO) 93.8 % (42.0-75.0); RED BLOOD COUNT 4.36 X10^6/uL (3.5-5.4); RED CELL DISTRIBUTION WIDTH 14.7 % (11.6-16.5); WHITE BLOOD COUNT 18.9 X10^3/uL (3.6-10.0)
[2022-01-24 05:36] LABS: ALANINE AMINOTRANSFERASE 36 Units/L (12-78); ALBUMIN 2.3 g/dL (3.4-5.0); ALKALINE PHOSPHATASE 54 Units/L (46-116); ASPARTATE AMINO TRANSFERASE 21 Units/L (15-37); BLOOD UREA NITROGEN 25 mg/dL (7-18); CALCIUM 8.5 mg/dL (8.5-10.1); CHLORIDE 105 mmol/L (98-107); COR CA(FOR HYPOALB) 9.9 mg/dL (8.5-10.1); COR NA(FOR HYPERGLY) 140 mmol/L (136-145); CREATININE 0.79 mg/dL (0.55-1.02); SODIUM 138 mmol/L (136-145); TOTAL PROTEIN 5.1 g/dL (6.4-8.2); eGFR NON BLACK RACES > 60 (>60)
[2022-01-24 05:44] LABS: PLATELET MORPHOLOGY COMMENT NORMAL (NORMAL)
--- NOTE | 2022-01-24 05:57 | RAD ---
PROCEDURE: Chest X-ray 1 View .HISTORY: Dyspnea and COPD exacerbation.TECHNIQUE: AP portable done at 5:22 a.m..COMPARISON: 01/23/2022.TECHNICAL QUALITY: Satisfactory .FINDINGS:Normal size heart .Mediastinum and hilar regions show no masses or lymphadenopathy .Normal central vascularity .Some discoid atelectasis or scar left base is unchanged. No consolidation or pleural fluid. Some hyperlucency upper lung napier consistent with emphysema with mild hyper expansion of the lungs.No acute bony abnormality .IMPRESSION:1. COPD.2. Some scar versus atelectasis left base that is unchanged.Electronically signed by: Bertin Sweeney (Jan 24, 2022 05:55:50)
[2022-01-24] MEDS: SOLU-Medrol 40 MG VIAL IVP SCH (06:23)
[2022-01-24] MEDS ORDERED: FORTAZ or TAZICEF VIAL INJ 1 G in NS 100 ML IV + SPIKE MINIBAG* 100 ML IV SCH (09:00)
[2022-01-24] MEDS: DUONEB 0.5 MG/3 MG (3 mL) NEB SCH ×4 (09:10→21:30)
[2022-01-24] MEDS: PULMICORT NEB TX 0.5 MG NEB SCH ×2 (09:10→21:30)
[2022-01-24] MEDS: LEVAQUIN PREMIX IV 500 MG 500 MG/100 ML BAG IV SCH (09:11)
[2022-01-24] MEDS: FORTAZ or TAZICEF VIAL INJ 1 G in NS 100 ML IV 100 ML IV SCH ×3 (09:11→22:03)
[2022-01-24] MEDS: NORVASC TAB 5 MG PO SCH (09:12)
[2022-01-24] MEDS: MEGACE PO SCH ×2 (09:12→20:36)
[2022-01-24] MEDS: LOVENOX INJ 40 MG SYR SC SCH (09:12)
[2022-01-24] MEDS: UNIPHYL TAB 400 MG 24-HR PO SCH (09:13)
[2022-01-24] MEDS: TOPROL XL PO SCH (09:13)
[2022-01-24] MEDS: SYNTHROID 75 mcg TAB PO SCH (09:13)
[2022-01-24] MEDS: PEPCID TAB 20 MG PO SCH ×2 (09:13→20:36)
[2022-01-24] MEDS: PREDNISONE TAB 5 MG PO SCH (09:46)
[2022-01-25] MEDS ORDERED: CATAPRES TAB 0.1 MG PO ONE (00:35)
[2022-01-25] MEDS: TORADOL 15 MG VIAL IVP SCH ×2 (05:33→09:53)
[2022-01-25] MEDS: NS 1,000 ML IV 1,000 ML IV SCH (05:33)
[2022-01-25] MEDS: FORTAZ or TAZICEF VIAL INJ 1 G in NS 100 ML IV 100 ML IV SCH (05:33)
--- NOTE | 2022-01-25 05:51 | RAD ---
PROCEDURE: Chest X-ray 1 View .HISTORY: Dyspnea and COPD exacerbation.TECHNIQUE: AP portable done at 5:05 a.m..COMPARISON: 01/24/2022.TECHNICAL QUALITY: Satisfactory .FINDINGS:Normal size heart .Mediastinum and hilar regions show no masses or lymphadenopathy .Normal central vascularity .No pulmonary consolidation, masses, pleural fluid, or pneumothorax. Unchanged increased interstitial markings consistent with fibrosis both lung napier. Unchanged hyperlucency both lung napier with hyper expansion consistent with emphysema.No acute bony abnormality .IMPRESSION:Unchanged interstitial fibrosis and COPD with no other acute abnormality identified.Electronically signed by: Bertin Sweeney (Jan 25, 2022 05:49:15)
[2022-01-25 06:02] LABS: ALANINE AMINOTRANSFERASE 35 Units/L (12-78); ALBUMIN 2.1 g/dL (3.4-5.0); ALKALINE PHOSPHATASE 48 Units/L (46-116); ASPARTATE AMINO TRANSFERASE 26 Units/L (15-37); BLOOD UREA NITROGEN 20 mg/dL (7-18); CALCIUM 8.2 mg/dL (8.5-10.1); CARBON DIOXIDE 29.2 mmol/L (21-32); CHLORIDE 105 mmol/L (98-107); COR CA(FOR HYPOALB) 9.7 mg/dL (8.5-10.1); CREATININE 0.62 mg/dL (0.55-1.02); SODIUM 139 mmol/L (136-145); TOTAL PROTEIN 4.8 g/dL (6.4-8.2); eGFR NON BLACK RACES > 60 (>60)
[2022-01-25 06:12] LABS: BASOPHILS % (AUTO) 0.1 % (0.2-1.0); EOSINOPHILS % (AUTO) 0.2 % (0.9-2.9); HEMATOCRIT 36.1 % (36.0-47.0); HEMOGLOBIN 12.3 g/dL (12.0-16.0); LYMPHOCYTES # (AUTO) 1.2 X10^3/uL (1.3-2.9); LYMPHOCYTES % (AUTO) 6.5 % (21.0-51.0); MEAN CORPUSCULAR HEMOGLOBIN 29.7 pg (27.0-34.0); MEAN CORPUSCULAR HGB CONC 34.1 g/dL (33.0-35.0); MEAN CORPUSCULAR VOLUME 86.9 fL (80.0-100.0); MEAN PLATELET VOLUME 9.8 fL (7.4-11.0); MONOCYTES # (AUTO) 1.9 x10^3/uL (0.3-0.8); MONOCYTES % (AUTO) 9.8 % (0.0-13.0); NEUTROPHILS # (AUTO) 15.8 x10^3/uL (2.2-4.8); NEUTROPHILS % (AUTO) 83.4 % (42.0-75.0); RED BLOOD COUNT 4.16 X10^6/uL (3.5-5.4); RED CELL DISTRIBUTION WIDTH 14.6 % (11.6-16.5)
[2022-01-25 08:20] VITALS: BP 190/86
[2022-01-25] MEDS: LEVAQUIN PREMIX IV 500 MG 500 MG/100 ML BAG IV SCH (08:40)
[2022-01-25] MEDS: LOVENOX INJ 40 MG SYR SC SCH (08:40)
[2022-01-25] MEDS: TOPROL XL PO SCH (08:41)
[2022-01-25] MEDS: NORVASC TAB 5 MG PO SCH (08:41)
[2022-01-25] MEDS: SYNTHROID 75 mcg TAB PO SCH (08:41)
[2022-01-25] MEDS: PREDNISONE TAB 5 MG PO SCH (08:41)
[2022-01-25] MEDS: UNIPHYL TAB 400 MG 24-HR PO SCH (08:44)
[2022-01-25] MEDS: MEGACE PO SCH (08:44)
[2022-01-25] MEDS: PEPCID TAB 20 MG PO SCH (08:44)
[2022-01-25] MEDS: PULMICORT NEB TX 0.5 MG NEB SCH (09:05)
[2022-01-25] MEDS: DUONEB 0.5 MG/3 MG (3 mL) NEB SCH (09:10)
== END 2022-01-25 11:30 | disposition home health service (06) | DRG 192 ==
LOC: MED/SURG
PROVIDERS: ADMIT Internal Medicine; ATTEND Internal Medicine
DX: I10 Essential (primary) hypertension; J44.1 Chronic obstructive pulmonary disease with (acute) exacerbation; B96.3 Hemophilus influenzae [H. influenzae] as the cause of diseases classified elsewhere; I25.10 Atherosclerotic heart disease of native coronary artery without angina pectoris; M54.89 Other dorsalgia; R91.8 Other nonspecific abnormal finding of lung field; E78.2 Mixed hyperlipidemia; R26.89 Other abnormalities of gait and mobility; M41.86 Other forms of scoliosis, lumbar region; Z20.822 Contact with and (suspected) exposure to COVID-19; E03.8 Other specified hypothyroidism; J20.8 Acute bronchitis due to other specified organisms; F41.8 Other specified anxiety disorders; W18.39XA Other fall on same level, initial encounter; R06.02 Shortness of breath

== ENCOUNTER 2024-06-05 09:52 | Observation (INO) ==
[2024-06-05] MEDS: NOZIN NASAL SANITIZER TP ONE (10:07)
[2024-06-05] MEDS: LR 1,000 ML IV 1,000 ML IV ONE (10:30)
[2024-06-05 10:46] LABS: BASOPHILS # (AUTO) 0.1 X10^3/uL (0.0-0.1); BASOPHILS % (AUTO) 0.4 % (0.2-1.0); EOSINOPHILS # (AUTO) 0.3 x10^3/uL (0.0-0.2); EOSINOPHILS % (AUTO) 1.9 % (0.9-2.9); HEMATOCRIT 41.4 % (36.0-47.0); HEMOGLOBIN 13.8 g/dL (12.0-16.0); LYMPHOCYTES # (AUTO) 3.3 X10^3/uL (1.3-2.9); LYMPHOCYTES % (AUTO) 22.9 % (21.0-51.0); MEAN CORPUSCULAR HGB CONC 33.3 g/dL (33.0-35.0); MEAN CORPUSCULAR VOLUME 90.1 fL (80.0-100.0); MEAN PLATELET VOLUME 8.4 fL (7.4-11.0); MONOCYTES % (AUTO) 7.1 % (0.0-13.0); NEUTROPHILS # (AUTO) 9.8 x10^3/uL (2.2-4.8); NEUTROPHILS % (AUTO) 67.7 % (42.0-75.0); PLATELET COUNT 316 X10^3/uL (150.0-450.0); RED CELL DISTRIBUTION WIDTH 14.6 % (11.6-16.5); WHITE BLOOD COUNT 14.4 X10^3/uL (3.6-10.0)
[2024-06-05 10:59] LABS: ALANINE AMINOTRANSFERASE 20 Units/L (12-78); ALBUMIN 3.9 g/dL (3.4-5.0); ALKALINE PHOSPHATASE 65 Units/L (46-116); ASPARTATE AMINO TRANSFERASE 18 Units/L (15-37); BLOOD UREA NITROGEN 29 mg/dL (7-18); CALCIUM 10.5 mg/dL (8.5-10.1); CARBON DIOXIDE 35.2 mmol/L (21-32); CHLORIDE 102 mmol/L (98-107); CREATININE 1.06 mg/dL (0.55-1.02); GLUCOSE 107 mg/dL (65-99); POTASSIUM 3.8 mmol/L (3.5-5.1); SODIUM 143 mmol/L (136-145); TOTAL PROTEIN 7.8 g/dL (6.4-8.2); eGFR NON BLACK RACES 52 (>60)
[2024-06-05] MEDS: DUONEB 0.5 MG/3 MG (3 mL) NEB ONE (11:14)
[2024-06-05] MEDS: NS 100 ML IV 100 ML ONE (14:39)
[2024-06-05] MEDS: ANCEF VIAL 1 GRAM ONE (14:39)
[2024-06-05] MEDS ORDERED: KETAMINE HCL ONE (14:47)
[2024-06-05] MEDS ORDERED: PRECEDEX INJ VIAL ONE (14:47)
[2024-06-05] MEDS: FENTANYL VIAL INJ 100 mcg ONE (14:47)
[2024-06-05] MEDS: VERSED ONE (14:47)
[2024-06-05] MEDS: PEPCID 20 MG VIAL ONE (14:47)
[2024-06-05] MEDS: ZOFRAN INJ 4 MG VIAL ONE (14:47)
[2024-06-05] MEDS: DECADRON INJ ONE (14:47)
[2024-06-05] MEDS ORDERED: XYLOCAINE 2 % (PLAIN) ONE (14:47)
[2024-06-05] MEDS: DIPRIVAN VIAL 20 ML ONE (14:47)
[2024-06-05] MEDS: MARCAINE 0.5% ONE (15:09)
[2024-06-05] MEDS: VISIPAQUE 100 ML ONE (15:09)
[2024-06-05] MEDS: HEPARIN SODIUM IN D5W 75,000 UNITS/1,500 ML BAG ONE (15:09)
[2024-06-05] MEDS: VISIPAQUE 50 ML ONE (15:09)
[2024-06-05] MEDS: HEPARIN SODIUM INJ 5000 UNITS ONE (15:10)
[2024-06-05] MEDS: NEO-SYNEPHRINE INJ ONE (15:25)
--- NOTE | 2024-06-05 16:38 | OR.IMMED ---
IMMEDIATE POST-OP NOTE Immediate Post-Op Note Date of surgery/procedure: 06/05/24 Pre-Op Diagnosis: Critical ischemia right leg Post-Op Diagnosis: same Procedure: diagnostic aortogram, diagnostic arteriogram right leg, angioplasty right peroneal artery, atherectomy and Drug coated balloon angioplasty of the right tibial peroneal trunk, atherectomy and Drug coated balloon angioplasty of the entire right popliteal and right superficial femoral arteries . Description of Procedure: dictated Surgeon/It Portfolio Manager: Sudha Findings: severe diffbut used disease of the right superficial femoral artery with 1 area of near complete occlusion. severe disease of the right popliteal artery, severe disease of the right tibial peroneal trunk , 1 vessel runoff which is the peroneal artery of the right leg Estimated Blood Loss: 100cc Complications: none Discharge Progress Notes: to [facility] then home ,continue Aspirin daily resume usual activity tomorrow, f/2 2 weeks
[2024-06-05] MEDS: OFIRMEV IV 1000 MG VIAL 1,000 MG/100 ML VIAL IV ONE (16:59)
[2024-06-05] MEDS ORDERED: NS 1,000 ML IV 1,000 ML ONE ×2 (17:45→19:46)
[2024-06-05] MEDS ORDERED: PERCOCET TAB 5/325 MG PO PRN (17:48)
[2024-06-05] MEDS ORDERED: VENTOLIN or PROAIR HFA IN PRN (17:55)
[2024-06-05] MEDS: NS 1,000 ML IV 1,000 ML IV ONE ×2 (18:32→19:48)
[2024-06-05 19:17] VITALS: BMI 17.2
[2024-06-05] MEDS: LR 1,000 ML IV 1,000 ML IV SCH (19:25)
[2024-06-05] MEDS: ZOFRAN INJ 4 MG VIAL IVP PRN (20:16)
[2024-06-05] MEDS: ASPIRIN EC 81 MG PO ONE (20:44)
[2024-06-05] MEDS: THEO-DUR TAB 300 MG 12-HR PO SCH (21:21)
--- NOTE | 2024-06-05 21:44 | EKG ---
Test Reason : low blood pressure Blood Pressure : */* mmHG Vent. Rate : 97 BPM Atrial Rate : 97 BPM P-R Int : 114 ms QRS Dur : 86 ms QT Int : 358 ms P-R-T Axes : 81 58 68 degrees QTc Int : 454 ms Normal sinus rhythm Nonspecific ST and T wave abnormality Abnormal ECG When compared with ECG of 28-APR-2024 12:05, Criteria for Anteroseptal infarct are no longer present ST no longer elevated in Inferior leads Nonspecific T wave abnormality no longer evident in Lateral leads Confirmed by Thee Montenegro ([id number]) on 06/09/2024 12:12:21 PM Referred By: Confirmed By: Thee Montenegro
[2024-06-05] MEDS: LEVOPHED 8 MG/250 ML IV *PREMIX 8 MG/250 ML PLAST..BAG IV PRN (21:57)
[2024-06-05 22:02] LABS: HEMATOCRIT 21.8 % (36.0-47.0); PLATELET COUNT 221 X10^3/uL (150.0-450.0)
[2024-06-05 22:06] LABS: BASOPHILS % (AUTO) 0.1 % (0.2-1.0); LYMPHOCYTES # (AUTO) 0.6 X10^3/uL (1.3-2.9); LYMPHOCYTES % (AUTO) 3.1 % (21.0-51.0); MEAN CORPUSCULAR HGB CONC 33.1 g/dL (33.0-35.0); MEAN CORPUSCULAR VOLUME 90.8 fL (80.0-100.0); MEAN PLATELET VOLUME 8.9 fL (7.4-11.0); MONOCYTES # (AUTO) 0.3 x10^3/uL (0.3-0.8); MONOCYTES % (AUTO) 1.6 % (0.0-13.0); NEUTROPHILS # (AUTO) 19.9 x10^3/uL (2.2-4.8); NEUTROPHILS % (AUTO) 95.2 % (42.0-75.0); RED CELL DISTRIBUTION WIDTH 14.3 % (11.6-16.5); WHITE BLOOD COUNT 20.9 X10^3/uL (3.6-10.0)
--- NOTE | 2024-06-05 22:10 | RAD ---
EXAM:CHEST, 1 VIEWHISTORY:Low blood pressure;COMPARISON:Frontal chest radiograph April 28, 2024TECHNIQUE:1 frontal view of the chestFINDINGS:There is a vascular stent present at the level of the left thoracic inlet. The lungs are hyperinflated with severe interstitial coarsening bilaterally. There is biapical scarring. There are airspace infiltrates in the left lower lobe. The heart is enlarged. Possible nodular densities in the right lateral lung.IMPRESSION:Severe pulmonary fibrotic pattern. Left lower lobe airspace opacities suggesting superimposed pneumonia.THIS IS AN ELECTRONICALLY VERIFIED FINAL [id number]/05/2024 10:07 PM - Electronically signed by Jordan Laughlin MD
[2024-06-05 22:14] LABS: ALANINE AMINOTRANSFERASE 11 Units/L (12-78); ALBUMIN 2.1 g/dL (3.4-5.0); ALKALINE PHOSPHATASE 40 Units/L (46-116); ASPARTATE AMINO TRANSFERASE 15 Units/L (15-37); BLOOD UREA NITROGEN 25 mg/dL (7-18); CALCIUM 7.7 mg/dL (8.5-10.1); CHLORIDE 110 mmol/L (98-107); COR CA(FOR HYPOALB) 9.2 mg/dL (8.5-10.1); COR NA(FOR HYPERGLY) 145 mmol/L (136-145); CREATININE 1.06 mg/dL (0.55-1.02); GLUCOSE 179 mg/dL (65-99); POTASSIUM 4.9 mmol/L (3.5-5.1); SODIUM 143 mmol/L (136-145); TOTAL PROTEIN 4.4 g/dL (6.4-8.2); eGFR NON BLACK RACES 52 (>60)
[2024-06-05 22:27] LABS: HEMOGLOBIN 7.2 g/dL (12.0-16.0)
[2024-06-05 22:28] LABS: ANISOCYTOSIS 1+; PLATELET MORPHOLOGY COMMENT NORMAL (NORMAL)
[2024-06-05] MEDS: ROCEPHIN VIAL 1 GRAM 1 G in NS 100 ML IV 100 ML IV SCH (23:44)
[2024-06-06] MEDS: PROVENTIL NEB TX 0.083% 2.5MG/ 3ML NEB SCH (00:02)
[2024-06-06] MEDS: SYNTHROID 75 mcg TAB PO SCH (06:01)
[2024-06-06 06:08] LABS: BASOPHILS % (AUTO) 0.1 % (0.2-1.0); LYMPHOCYTES # (AUTO) 1.3 X10^3/uL (1.3-2.9); MEAN CORPUSCULAR HEMOGLOBIN 30.6 pg (27.0-34.0); MEAN PLATELET VOLUME 9.4 fL (7.4-11.0); MONOCYTES # (AUTO) 0.8 x10^3/uL (0.3-0.8); MONOCYTES % (AUTO) 5.1 % (0.0-13.0); NEUTROPHILS # (AUTO) 14.3 x10^3/uL (2.2-4.8); NEUTROPHILS % (AUTO) 86.8 % (42.0-75.0); PLATELET COUNT 221 X10^3/uL (150.0-450.0); RED BLOOD COUNT 2.14 X10^6/uL (3.5-5.4); RED CELL DISTRIBUTION WIDTH 14.6 % (11.6-16.5); WHITE BLOOD COUNT 16.5 X10^3/uL (3.6-10.0)
[2024-06-06 06:13] LABS: HEMOGLOBIN 6.6 g/dL (12.0-16.0)
[2024-06-06 06:14] LABS: HEMATOCRIT 19.3 % (36.0-47.0)
[2024-06-06 06:16] LABS: ALANINE AMINOTRANSFERASE 12 Units/L (12-78); ALBUMIN 2.3 g/dL (3.4-5.0); ALKALINE PHOSPHATASE 41 Units/L (46-116); ASPARTATE AMINO TRANSFERASE 14 Units/L (15-37); BLOOD UREA NITROGEN 28 mg/dL (7-18); CALCIUM 7.9 mg/dL (8.5-10.1); CARBON DIOXIDE 25.4 mmol/L (21-32); CHLORIDE 108 mmol/L (98-107); COR CA(FOR HYPOALB) 9.3 mg/dL (8.5-10.1); COR NA(FOR HYPERGLY) 143 mmol/L (136-145); CREATININE 1.09 mg/dL (0.55-1.02); GLUCOSE 218 mg/dL (65-99); POTASSIUM 4.7 mmol/L (3.5-5.1); SODIUM 140 mmol/L (136-145); TOTAL PROTEIN 4.8 g/dL (6.4-8.2); eGFR NON BLACK RACES 51 (>60)
[2024-06-06] MEDS ORDERED: CONSULT PHARMACY - POTASSIUM & MAGNESIUM XX SCH ×2 (07:00→08:00)
[2024-06-06] MEDS ORDERED: TOPROL XL PO ONE (09:16)
[2024-06-06] MEDS: LR 1,000 ML IV 1,000 ML with MAGNESIUM SULFATE 50% INJ VIAL 1 G IV SCH (09:37)
[2024-06-06] MEDS: LIPITOR TAB 20 MG PO SCH (09:39)
[2024-06-06] MEDS: PREDNISONE TAB 5 MG PO SCH (09:39)
[2024-06-06] MEDS: NORVASC TAB 5 MG PO SCH (09:39)
[2024-06-06] MEDS: TOPROL XL PO SCH (09:40)
[2024-06-06] MEDS: TAB-A-VITE PO SCH (09:40)
[2024-06-06] MEDS: LR 1,000 ML IV 1,000 ML IV ONE (09:48)
[2024-06-06] MEDS: NS 500 ML IV 500 ML IV ONE (11:00)
--- NOTE | 2024-06-06 11:25 | NOTE.SOAP ---
Soap Note Note for Day of Date of Exam: 06/06/24 Subjective Data Subjective Data: Following right leg arterial intervention yesterday initial plan was to send the patient home. She had hypotension and had complained of some shortness of breath. She did not respond to fluid bolusestherefore was admitted to the ICU for observation. With hydration hemoglobin dropped from 13.8 to 6.6. She is currently receiving 2 units of packed red blood cells. Initially she did require norepinephrine drip for a short time to support her blood pressure. Right now is off of pressor drip with a good blood pressure greater than 130 millimeters of mercury systolic. C XR shows old fibrosis which they interpreted as possible left lower lobe nfiltrate which I'm not impressed about however, she had elevated white blood cell count was started IV on antibiotics. We have consult ed the medicine service to see her in consultation. Currently off pressors and doing well. The complaints of her legs have resolved. Objective Data Temperature: 98 F Pulse Rate: 94 Respiratory Rate: 16 Blood Pressure: 132/60 O2 Sat by Pulse Oximetry: 100 Objective Data: no complaints , feet warm, Assessment Assessment: Hypotension appears to be due to deplete volume status and Hgb droped with dilution. On IV antibiotics, and will check Hgb after transfusion. Plan Plan: As above , discussed with her daughter by phone , Medicine consult
[2024-06-06] MEDS: PATIENT'S HOME MEDICATION PO SCH (17:36)
[2024-06-06 18:45] LABS: HEMATOCRIT 29.8 % (36.0-47.0); HEMOGLOBIN 10.2 g/dL (12.0-16.0)
[2024-06-06] MEDS: KLONOPIN TAB 0.5 MG PO PRN (22:20)
[2024-06-07 05:28] LABS: WHITE BLOOD COUNT 13.3 X10^3/uL (3.6-10.0)
[2024-06-07 05:34] LABS: BASOPHILS % (AUTO) 0.1 % (0.2-1.0); EOSINOPHILS % (AUTO) 0.3 % (0.9-2.9); HEMATOCRIT 27.8 % (36.0-47.0); HEMOGLOBIN 9.9 g/dL (12.0-16.0); LYMPHOCYTES # (AUTO) 1.5 X10^3/uL (1.3-2.9); LYMPHOCYTES % (AUTO) 11.6 % (21.0-51.0); MEAN CORPUSCULAR HEMOGLOBIN 30.3 pg (27.0-34.0); MEAN CORPUSCULAR HGB CONC 35.5 g/dL (33.0-35.0); MEAN CORPUSCULAR VOLUME 85.4 fL (80.0-100.0); MEAN PLATELET VOLUME 8.9 fL (7.4-11.0); MONOCYTES # (AUTO) 1.8 x10^3/uL (0.3-0.8); MONOCYTES % (AUTO) 13.3 % (0.0-13.0); NEUTROPHILS % (AUTO) 74.7 % (42.0-75.0); PLATELET COUNT 167 X10^3/uL (150.0-450.0); RED BLOOD COUNT 3.26 X10^6/uL (3.5-5.4); RED CELL DISTRIBUTION WIDTH 14.8 % (11.6-16.5)
[2024-06-07 05:40] LABS: ALANINE AMINOTRANSFERASE 15 Units/L (12-78); ALBUMIN 2.8 g/dL (3.4-5.0); ALKALINE PHOSPHATASE 47 Units/L (46-116); ASPARTATE AMINO TRANSFERASE 31 Units/L (15-37); BLOOD UREA NITROGEN 20 mg/dL (7-18); CALCIUM 8.9 mg/dL (8.5-10.1); CARBON DIOXIDE 31.7 mmol/L (21-32); CHLORIDE 108 mmol/L (98-107); COR CA(FOR HYPOALB) 9.9 mg/dL (8.5-10.1); CREATININE 0.83 mg/dL (0.55-1.02); GLUCOSE 107 mg/dL (65-99); MAGNESIUM 1.8 mg/dL (2.0-2.9); SODIUM 143 mmol/L (136-145); TOTAL PROTEIN 5.6 g/dL (6.4-8.2); eGFR NON BLACK RACES > 60 (>60)
[2024-06-07] MEDS ORDERED: CONSULT PHARMACY - POTASSIUM & MAGNESIUM XX SCH (08:00)
[2024-06-07] MEDS ORDERED: TOPROL XL PO ONE (09:17)
[2024-06-07] MEDS: MAG-OX TAB PO SCH (09:22)
[2024-06-07 10:18] VITALS: BP 126/58; O2SAT 99
[2024-06-07 10:25] VITALS: PULSE 118; RESP 26; TEMP 98.1
[2024-06-07] MEDS: MAG-OX TAB ONE (11:14)
--- NOTE | 2024-06-12 20:43 | DR.OPNOTE ---
OP NOTE Pre-Op Diagnosis: critical ischemia left leg Post-Op Diagnosis: same Procedure Date Date Of Procedure: 06/05/24 Procedure: PROCEDURE: DIAGNOSTIC AORTOGRAM, DIAGNOSTIC ARTERIOGRAM LEFT LEG, ANGIOPLASTY LEFT PERONEAL ARTERY, ATHERECTOMY AND DRUG COATED BALLOON ANGIOPLASTY LEFT TIBIAL PERONEAL TRUNK ARTERY , ATHERECTOMY AND DRUG COATED BALLOON ANGIOPLASTY LEFT SUPERFICIAL AND POPLITEAL ARTERIES NARRATIVE : The patient was taken to the operative suite and placed in the supine position. The right groin and entire left leg were prepped and draped in sterile fashion. The patient was given intravenous sedation supervised by myself. Time out for the procedure obtained. Ultrasound used to identify the right femoral artery and the skin overlying it infiltrated with 0.5% Marcaine. Ultrasound then used to guide puncture of the right femoral artery and a 0.012 inch guide wire was placed. Incision made over the guide wire at the skin edge with a # 11 knife blade and a micro sheath placed over the guide wire into the right femoral artery .The small guidewire exchanged for a 0.035 inch Advantage glide wire and the micro sheath exchanged for a 5 Fr vascular sheath. Patient given 5000 units of intravenous heparin. Omni catheter was placed over the guide wire into the aorta and diagnostic aortogram carried out with the power injector showing patetnt aorta and iliac arteries . Omni catheter was used to steer the guide wire down the left common iliac artery to the distal left external iliac artery . Omni catheter was exchanged for a [place] catheter and sequential arteriograms carried out of the left lower extremity showing severly diseased left popliteal and superficial femoral arteries with one area on near complete occlusion of the left superficial femoral artery , severely diseased left tibial peroneal trunk artery and one vessel runoff to the left ankle via a severely diseased left peroneal artery . The 5 Fr sheath in the right groin then exchanged for a 7 Fr Catapult destination sheath which was parked in the distal left external iliac artery. [place] catheter and the guide wire were used to traverse the arteries of the left leg ultimately ending in the left peroneal artery all the way to the ankle . This was selective catheterization. 0.035 inch wire removed and exchanged for a 0.014 inch wire. Over this wire we placed the [place] atherectomy device and performed atherectomy of the entire left superficial femoral and popliteal arteries as well as the tibial peroneal trunk arteries .At this point we performed angiopasty balloon dilatation of the left peroneal artery with a [place] 3 millimetre by 220 millimetre balloon. This was removed and we then placed a [place] 4 millimeter x 100 millimeter drug- coated balloon in the tibial peroneal trunk artery and expanded it for 3 minutes. This removed and the distal and mid portion of the superficial femoral and popliteal artery dilated with two 5 millimetre x200 millimetre [employer] [place] drug coated balloon inflating each each for 3 minutes. Finally the proximal left superficial femoral artery was dilated with a [place] 6 millimetre by 60 millimetre drug coated balloon inflating it for 3 minutes. At the completion of this a follow up arteriogram showed exellent results .Al wires and devices removed. The 7 Fr sheath was pulled back into the aorta and a 0.035 inch wire placed. The destination sheath exchanged for an Angioseal device used to close the puncture of the right femoral artery. .Dressing applied to the left groin. The patient taken to [facility] in good condition. Type of Anesthesia: Local (0.5% Marcaine ) Anesthesia Comment: plus MAC Findings: severely diseased left superficial and popliteal arteries with one area near complete occlusion of the left superficial femoral artery , severely diseases lef tibial peroneal trunk, one vessel runoff to the left ankle via a diseased peroneal artery Type of Fluids Used:: Lactated Ringers Total Amount of Fluid Infused:: 900cc Urine output: 600cc EBL: 100cc Complications:: none Needle/Sponge Count:: correct Disposition/Condition: Pt. tolerated procedure without difficulty. Taken to [facility] in stable condition.
--- NOTE | 2024-06-16 09:25 | W.DIS.FURT ---
Summary of Discharge Discharge Summary of Date Date of Exam: 06/07/24 Admission Date Date of Admission: 06/05/24 Admission Diagnosis Hospital Course: Ms Duval is a 83y/o female with a PMH of CAD s/p PCI, PVD , HTN, HLD, hypothyroidism and anxiety was admitted for worsening claudication symptoms due to b/l leg ischemia. She underwent intervention in both legs including diagnostic aortogram, diagnostic arteriogram right leg, angioplasty. She was noted to be hypotensive and short of breath after the procedure so was transferred to ICU for closer monitoring. She received several fluid boluses to help with BP. She was requiring O2 via NC. CXR was concerning for pneumonia. She did not require pressor support. Medicine was consulted. Patient's labs showed severe anemia, Hgb 6.6. She did get 2 units PRBCS. She was doing better. Her hgb came up to 9.9 prior to discharge. She was stable to go home and will f/u with Dr Haley and PCP. Her BP also remained stable. She was sent home on PO abx and IS. Vital Signs: Vital Signs (72 hours) 06/06/24 11:25 06/05/24 10:28 06/05/24 10:28 Temperature 98 F 98.1 F Pulse Rate 94 H 97 H 97 H Respiratory Rate 16 20 Blood Pressure 132/60 149/65 O2 Sat by Pulse Oximetry 100 93 L Oxygen Delivery Method Nasal Cannula Oxygen Flow Rate FIO2% 06/05/24 16:23 06/05/24 16:38 06/05/24 17:01 Temperature Pulse Rate 89 91 H 78 Respiratory Rate 18 18 18 Blood Pressure 121/57 102/53 100/55 O2 Sat by Pulse Oximetry 99 99 97 Oxygen Delivery Method Nasal Cannula Nasal Cannula Nasal Cannula Oxygen Flow Rate FIO2% 06/05/24 16:53 06/05/24 16:56 06/05/24 17:06 Temperature Pulse Rate 71 73 82 Respiratory Rate 18 18 18 Blood Pressure 60/36 85/48 104/55 O2 Sat by Pulse Oximetry 99 99 97 Oxygen Delivery Method Nasal Cannula Nasal Cannula Nasal Cannula Oxygen Flow Rate FIO2% 06/05/24 17:26 06/05/24 17:35 06/05/24 17:43 Temperature Pulse Rate 79 85 78 Respiratory Rate 18 18 18 Blood Pressure 90/50 100/52 101/50 O2 Sat by Pulse Oximetry 99 99 100 Oxygen Delivery Method Nasal Cannula Nasal Cannula Nasal Cannula Oxygen Flow Rate FIO2% 06/05/24 17:11 06/05/24 17:16 06/05/24 18:14 Temperature Pulse Rate 78 82 Respiratory Rate 18 18 Blood Pressure 90/46 76/37 O2 Sat by Pulse Oximetry 100 100 Oxygen Delivery Method Nasal Cannula Nasal Cannula Room Air Oxygen Flow Rate FIO2% 06/05/24 18:01 06/05/24 18:03 06/05/24 18:31 Temperature 97.8 F Pulse Rate 84 Respiratory Rate 14 Blood Pressure 144/91 O2 Sat by Pulse Oximetry Oxygen Delivery Method Oxygen Flow Rate FIO2% 06/05/24 18:15 06/05/24 18:21 06/05/24 18:22 Temperature Pulse Rate 81 83 83 Respiratory Rate 21 20 23 Blood Pressure 76/40 80/43 76/40 O2 Sat by Pulse Oximetry 97 97 97 Oxygen Delivery Method Oxygen Flow Rate FIO2% 06/05/24 18:30 06/05/24 18:45 06/05/24 18:50 Temperature Pulse Rate 83 89 88 Respiratory Rate 22 25 H 23 Blood Pressure 81/45 101/49 106/51 O2 Sat by Pulse Oximetry 97 94 L 97 Oxygen Delivery Method Oxygen Flow Rate FIO2% 06/05/24 18:55 06/05/24 18:55 06/05/24 19:00 Temperature Pulse Rate 88 86 Respiratory Rate 20 22 Blood Pressure 97/50 101/51 102/54 O2 Sat by Pulse Oximetry 95 97 Oxygen Delivery Method Oxygen Flow Rate FIO2% 06/05/24 19:10 06/05/24 19:15 06/05/24 19:20 Temperature Pulse Rate 90 92 H 90 Respiratory Rate 24 25 H 20 Blood Pressure 112/55 90/48 98/47 O2 Sat by Pulse Oximetry 97 97 98 Oxygen Delivery Method Oxygen Flow Rate FIO2% 06/05/24 19:25 06/05/24 19:30 06/05/24 19:35 Temperature Pulse Rate 92 H 90 90 Respiratory Rate 20 20 19 Blood Pressure 89/48 92/46 85/47 O2 Sat by Pulse Oximetry 98 99 99 Oxygen Delivery Method Oxygen Flow Rate FIO2% 06/05/24 19:40 06/05/24 19:45 06/05/24 19:50 Temperature Pulse Rate 88 87 87 Respiratory Rate 21 20 22 Blood Pressure 86/46 78/43 82/46 O2 Sat by Pulse Oximetry 98 99 98 Oxygen Delivery Method Oxygen Flow Rate FIO2% 06/05/24 19:55 06/05/24 19:55 06/05/24 20:00 Temperature 98 F Pulse Rate 89 91 H Respiratory Rate 21 36 H Blood Pressure 93/54 110/55 O2 Sat by Pulse Oximetry 98 100 Oxygen Delivery Method Oxygen Flow Rate FIO2% 06/05/24 20:05 06/05/24 20:10 06/05/24 20:00 Temperature Pulse Rate 91 H 91 H Respiratory Rate 36 H 36 H Blood Pressure 120/56 113/57 O2 Sat by Pulse Oximetry 100 100 Oxygen Delivery Method Nasal Cannula Oxygen Flow Rate 2 FIO2% 28 06/05/24 20:15 06/05/24 20:20 06/05/24 20:25 Temperature Pulse Rate Respiratory Rate Blood Pressure 118/58 107/56 101/50 O2 Sat by Pulse Oximetry Oxygen Delivery Method Oxygen Flow Rate FIO2% 06/05/24 20:30 06/05/24 20:36 06/05/24 20:40 Temperature Pulse Rate Respiratory Rate Blood Pressure 116/55 130/59 118/56 O2 Sat by Pulse Oximetry Oxygen Delivery Method Oxygen Flow Rate FIO2% 06/05/24 20:45 06/05/24 20:50 06/05/24 20:55 Temperature Pulse Rate 105 H Respiratory Rate 26 H Blood Pressure 115/58 105/54 95/50 O2 Sat by Pulse Oximetry 98 Oxygen Delivery Method Oxygen Flow Rate FIO2% 06/05/24 19:00 06/05/24 21:00 06/05/24 21:05 Temperature Pulse Rate 99 H 100 H Respiratory Rate 29 H 24 Blood Pressure 99/50 103/53 O2 Sat by Pulse Oximetry 100 99 Oxygen Delivery Method Nasal Cannula Oxygen Flow Rate 2 FIO2% 06/05/24 21:05 06/05/24 21:10 06/05/24 21:15 Temperature Pulse Rate 99 H 98 H Respiratory Rate 24 19 Blood Pressure 103/53 91/50 94/52 O2 Sat by Pulse Oximetry 100 100 Oxygen Delivery Method Oxygen Flow Rate FIO2% 06/05/24 21:25 06/05/24 21:30 06/05/24 21:35 Temperature Pulse Rate 101 H 97 H 95 H Respiratory Rate 22 19 19 Blood Pressure 86/48 79/47 100/51 O2 Sat by Pulse Oximetry 99 99 99 Oxygen Delivery Method Oxygen Flow Rate FIO2% 06/05/24 21:40 06/05/24 21:45 06/05/24 21:50 Temperature Pulse Rate 104 H 104 H 103 H Respiratory Rate 24 22 22 Blood Pressure 100/49 89/52 102/82 O2 Sat by Pulse Oximetry 98 99 99 Oxygen Delivery Method Oxygen Flow Rate FIO2% 06/05/24 21:55 06/05/24 22:00 06/05/24 22:10 Temperature Pulse Rate 101 H 99 H 98 H Respiratory Rate 24 18 17 Blood Pressure 92/68 96/52 94/50 O2 Sat by Pulse Oximetry 99 100 100 Oxygen Delivery Method Oxygen Flow Rate FIO2% 06/05/24 22:10 06/05/24 22:20 06/05/24 22:30 Temperature Pulse Rate 98 H 102 H 97 H Respiratory Rate 17 19 17 Blood Pressure 94/50 101/54 158/68 O2 Sat by Pulse Oximetry 100 100 100 Oxygen Delivery Method Oxygen Flow Rate FIO2% 06/05/24 22:35 06/05/24 23:00 06/05/24 22:40 Temperature 98.6 F Pulse Rate 95 H 101 H Respiratory Rate 18 19 Blood Pressure 151/68 127/59 O2 Sat by Pulse Oximetry 99 99 Oxygen Delivery Method Oxygen Flow Rate FIO2% 06/05/24 22:50 06/05/24 22:59 06/05/24 23:10 Temperature Pulse Rate 106 H 116 H 111 H Respiratory Rate 21 20 18 Blood Pressure 139/60 138/62 152/64 O2 Sat by Pulse Oximetry 99 99 99 Oxygen Delivery Method Oxygen Flow Rate FIO2% 06/05/24 23:20 06/05/24 23:30 06/05/24 23:30 Temperature Pulse Rate 113 H 110 H Respiratory Rate 21 24 Blood Pressure 140/61 144/65 144/65 O2 Sat by Pulse Oximetry 98 98 Oxygen Delivery Method Oxygen Flow Rate FIO2% 06/05/24 23:40 06/05/24 23:40 06/05/24 23:45 Temperature Pulse Rate 101 H 107 H Respiratory Rate 31 H 24 Blood Pressure 153/74 153/74 125/60 O2 Sat by Pulse Oximetry 96 97 Oxygen Delivery Method Oxygen Flow Rate FIO2% 06/06/24 00:04 06/06/24 00:00 06/06/24 00:15 Temperature Pulse Rate 72 99 H 100 H Respiratory Rate 17 21 Blood Pressure 129/50 124/58 O2 Sat by Pulse Oximetry 99 99 99 Oxygen Delivery Method Oxygen Flow Rate FIO2% 06/06/24 00:30 06/06/24 00:45 06/06/24 01:00 Temperature Pulse Rate 101 H 95 H 100 H Respiratory Rate 18 19 20 Blood Pressure 126/60 132/60 144/61 O2 Sat by Pulse Oximetry 99 100 99 Oxygen Delivery Method Oxygen Flow Rate FIO2% 06/06/24 01:15 06/06/24 01:30 06/06/24 01:45 Temperature Pulse Rate 93 H 103 H 93 H Respiratory Rate 19 21 19 Blood Pressure 136/64 135/58 146/64 O2 Sat by Pulse Oximetry 100 99 99 Oxygen Delivery Method Oxygen Flow Rate FIO2% 06/06/24 02:00 06/06/24 02:15 06/06/24 02:30 Temperature Pulse Rate 100 H 94 H 97 H Respiratory Rate 20 17 20 Blood Pressure 153/67 124/58 123/59 O2 Sat by Pulse Oximetry 99 99 98 Oxygen Delivery Method Oxygen Flow Rate FIO2% 06/06/24 02:40 06/06/24 03:00 06/06/24 03:15 Temperature Pulse Rate 93 H 95 H 91 H Respiratory Rate 19 18 17 Blood Pressure 144/65 147/63 130/63 O2 Sat by Pulse Oximetry 99 100 100 Oxygen Delivery Method Oxygen Flow Rate FIO2% 06/06/24 03:30 06/06/24 03:47 06/06/24 04:00 Temperature 98 F Pulse Rate 101 H 104 H 108 H Respiratory Rate 21 26 H 22 Blood Pressure 146/85 112/62 128/67 O2 Sat by Pulse Oximetry 99 96 97 Oxygen Delivery Method Oxygen Flow Rate FIO2% 06/06/24 04:15 06/06/24 04:30 06/06/24 04:45 Temperature Pulse Rate 96 H 94 H 93 H Respiratory Rate 18 17 19 Blood Pressure 124/63 133/59 131/62 O2 Sat by Pulse Oximetry 99 100 100 Oxygen Delivery Method Oxygen Flow Rate FIO2% 06/06/24 05:00 06/06/24 05:29 06/06/24 05:45 Temperature Pulse Rate 93 H 102 H 91 H Respiratory Rate 17 18 19 Blood Pressure 132/61 127/58 132/60 O2 Sat by Pulse Oximetry 100 100 100 Oxygen Delivery Method Oxygen Flow Rate FIO2% 06/06/24 06:00 06/06/24 06:07 06/06/24 06:15 Temperature Pulse Rate 90 94 H 106 H Respiratory Rate 16 21 Blood Pressure 127/61 128/62 O2 Sat by Pulse Oximetry 100 99 100 Oxygen Delivery Method Oxygen Flow Rate FIO2% 06/06/24 06:30 06/06/24 08:55 06/06/24 06:46 Temperature Pulse Rate 102 H Respiratory Rate 23 Blood Pressure 155/59 149/69 O2 Sat by Pulse Oximetry 99 Oxygen Delivery Method Nasal Cannula Oxygen Flow Rate 2 FIO2% 28 06/06/24 06:46 06/06/24 07:00 06/06/24 07:00 Temperature Pulse Rate 104 H 121 H Respiratory Rate 23 28 H Blood Pressure 137/60 O2 Sat by Pulse Oximetry 100 100 Oxygen Delivery Method Oxygen Flow Rate 2 FIO2% 06/06/24 07:15 06/06/24 07:15 06/06/24 07:30 Temperature Pulse Rate 101 H 102 H Respiratory Rate 22 22 Blood Pressure 146/63 O2 Sat by Pulse Oximetry 100 100 Oxygen Delivery Method Oxygen Flow Rate FIO2% 06/06/24 07:30 06/06/24 07:45 06/06/24 07:45 Temperature Pulse Rate Respiratory Rate Blood Pressure 132/60 111/53 O2 Sat by Pulse Oximetry Oxygen Delivery Method Nasal Cannula Oxygen Flow Rate 2 FIO2% 06/06/24 08:00 06/06/24 08:00 06/06/24 08:15 Temperature 98.6 F Pulse Rate 108 H Respiratory Rate 21 Blood Pressure 116/57 120/56 O2 Sat by Pulse Oximetry 100 Oxygen Delivery Method Nasal Cannula Oxygen Flow Rate 2 FIO2% 06/06/24 08:15 06/06/24 08:30 06/06/24 08:30 Temperature Pulse Rate 104 H 115 H Respiratory Rate 20 38 H Blood Pressure 131/60 O2 Sat by Pulse Oximetry 100 99 Oxygen Delivery Method Oxygen Flow Rate FIO2% 06/06/24 08:30 06/06/24 08:45 06/06/24 08:45 Temperature Pulse Rate 119 H Respiratory Rate 27 H Blood Pressure 131/60 113/55 O2 Sat by Pulse Oximetry 99 Oxygen Delivery Method Oxygen Flow Rate 2 FIO2% 06/06/24 09:00 06/06/24 09:00 06/06/24 09:15 Temperature Pulse Rate 120 H Respiratory Rate 31 H Blood Pressure 131/59 162/66 O2 Sat by Pulse Oximetry 96 Oxygen Delivery Method Nasal Cannula Oxygen Flow Rate 2 FIO2% 06/06/24 09:15 06/06/24 09:30 06/06/24 09:30 Temperature Pulse Rate 123 H 113 H Respiratory Rate 22 31 H Blood Pressure 147/64 O2 Sat by Pulse Oximetry 98 100 Oxygen Delivery Method Oxygen Flow Rate FIO2% 06/06/24 09:45 06/06/24 09:45 06/06/24 10:00 Temperature Pulse Rate 120 H 109 H Respiratory Rate 30 H 24 Blood Pressure 138/63 O2 Sat by Pulse Oximetry 99 2 L Oxygen Delivery Method Nasal Cannula Oxygen Flow Rate 2 FIO2% 06/06/24 10:00 06/06/24 10:15 06/06/24 10:15 Temperature Pulse Rate 111 H Respiratory Rate 30 H Blood Pressure 136/63 128/58 O2 Sat by Pulse Oximetry 100 Oxygen Delivery Method Oxygen Flow Rate FIO2% 06/06/24 10:30 06/06/24 10:30 06/06/24 10:30 Temperature Pulse Rate 110 H Respiratory Rate 30 H Blood Pressure 118/58 118/58 O2 Sat by Pulse Oximetry 100 Oxygen Delivery Method Oxygen Flow Rate FIO2% 06/06/24 10:45 06/06/24 10:45 06/06/24 11:00 Temperature 98.3 F Pulse Rate 112 H Respiratory Rate 27 H Blood Pressure 131/56 125/51 O2 Sat by Pulse Oximetry 96 Oxygen Delivery Method Oxygen Flow Rate FIO2% 06/06/24 11:00 06/06/24 11:15 06/06/24 11:15 Temperature Pulse Rate 108 H 109 H Respiratory Rate 24 33 H Blood Pressure 149/65 O2 Sat by Pulse Oximetry 100 99 Oxygen Delivery Method Nasal Cannula Oxygen Flow Rate 2 FIO2% 06/06/24 11:20 06/06/24 11:20 06/06/24 11:30 Temperature Pulse Rate 105 H Respiratory Rate 23 Blood Pressure 122/58 119/55 O2 Sat by Pulse Oximetry 99 Oxygen Delivery Method Oxygen Flow Rate FIO2% 06/06/24 11:30 06/06/24 11:45 06/06/24 11:45 Temperature Pulse Rate 108 H 104 H Respiratory Rate 28 H 22 Blood Pressure 121/60 O2 Sat by Pulse Oximetry 98 98 Oxygen Delivery Method Oxygen Flow Rate FIO2% 06/06/24 12:00 06/06/24 12:00 06/06/24 13:00 Temperature 98.3 F 98.3 F Pulse Rate 114 H 107 H Respiratory Rate 31 H 24 Blood Pressure 128/60 126/56 O2 Sat by Pulse Oximetry 95 95 Oxygen Delivery Method Nasal Cannula Nasal Cannula Oxygen Flow Rate 2 2 FIO2% 06/06/24 14:00 06/06/24 07:00 06/06/24 12:30 Temperature 98.2 F Pulse Rate 101 H 109 H Respiratory Rate 24 Blood Pressure 137/62 O2 Sat by Pulse Oximetry 100 94 L Oxygen Delivery Method Nasal Cannula Nasal Cannula Oxygen Flow Rate 2 2 2 FIO2% 06/06/24 12:31 06/06/24 12:31 06/06/24 12:31 Temperature Pulse Rate 109 H Respiratory Rate Blood Pressure 138/57 138/57 O2 Sat by Pulse Oximetry Oxygen Delivery Method Oxygen Flow Rate FIO2% 06/06/24 13:00 06/06/24 13:01 06/06/24 13:01 Temperature Pulse Rate 108 H 107 H Respiratory Rate 26 H 29 H Blood Pressure 126/56 O2 Sat by Pulse Oximetry 94 L 95 Oxygen Delivery Method Oxygen Flow Rate 2 FIO2% 06/06/24 13:30 06/06/24 13:30 06/06/24 14:00 Temperature Pulse Rate 111 H Respiratory Rate Blood Pressure 138/75 137/62 O2 Sat by Pulse Oximetry 98 Oxygen Delivery Method Oxygen Flow Rate FIO2% 06/06/24 14:00 06/06/24 14:30 06/06/24 14:35 Temperature Pulse Rate 101 H 113 H Respiratory Rate 24 28 H Blood Pressure 142/65 O2 Sat by Pulse Oximetry 100 97 Oxygen Delivery Method Oxygen Flow Rate 2 FIO2% 06/06/24 14:35 06/06/24 14:35 06/06/24 15:00 Temperature Pulse Rate 103 H 99 H Respiratory Rate 26 H 20 Blood Pressure 142/65 O2 Sat by Pulse Oximetry 98 100 Oxygen Delivery Method Oxygen Flow Rate FIO2% 06/06/24 15:00 06/06/24 15:30 06/06/24 15:30 Temperature Pulse Rate 110 H Respiratory Rate 31 H Blood Pressure 141/65 157/72 O2 Sat by Pulse Oximetry Oxygen Delivery Method Nasal Cannula Oxygen Flow Rate 2 FIO2% 06/06/24 16:00 06/06/24 16:00 06/06/24 16:30 Temperature 98.3 F Pulse Rate 95 H Respiratory Rate 22 Blood Pressure 147/66 135/65 O2 Sat by Pulse Oximetry 99 Oxygen Delivery Method Nasal Cannula Oxygen Flow Rate 2 FIO2% 06/06/24 16:30 06/06/24 17:00 06/06/24 17:00 Temperature Pulse Rate 94 H 102 H Respiratory Rate 25 H 31 H Blood Pressure 154/67 O2 Sat by Pulse Oximetry 100 98 Oxygen Delivery Method Nasal Cannula Oxygen Flow Rate 2 FIO2% 06/06/24 17:30 06/06/24 17:30 06/06/24 18:00 Temperature Pulse Rate 101 H 102 H Respiratory Rate 25 H 26 H Blood Pressure 151/67 O2 Sat by Pulse Oximetry 99 95 Oxygen Delivery Method Nasal Cannula Oxygen Flow Rate 2 FIO2% 06/06/24 18:00 06/06/24 19:00 06/06/24 19:00 Temperature Pulse Rate Respiratory Rate Blood Pressure 128/82 130/59 O2 Sat by Pulse Oximetry Oxygen Delivery Method Nasal Cannula Oxygen Flow Rate 2 FIO2% 06/06/24 19:00 06/06/24 20:00 06/06/24 20:00 Temperature 98.3 F Pulse Rate 98 H 94 H Respiratory Rate 22 23 Blood Pressure 133/88 O2 Sat by Pulse Oximetry 100 100 Oxygen Delivery Method Oxygen Flow Rate FIO2% 06/06/24 21:00 06/06/24 21:00 06/06/24 22:00 Temperature Pulse Rate 99 H 94 H Respiratory Rate 25 H 22 Blood Pressure 153/70 O2 Sat by Pulse Oximetry 98 99 Oxygen Delivery Method Oxygen Flow Rate FIO2% 06/06/24 22:00 06/06/24 23:00 06/06/24 23:00 Temperature Pulse Rate 85 Respiratory Rate 20 Blood Pressure 128/63 122/79 O2 Sat by Pulse Oximetry 100 Oxygen Delivery Method Oxygen Flow Rate FIO2% 06/07/24 00:00 06/07/24 00:00 06/07/24 01:00 Temperature 98.1 F Pulse Rate 81 97 H Respiratory Rate 18 24 Blood Pressure 118/60 O2 Sat by Pulse Oximetry 100 100 Oxygen Delivery Method Oxygen Flow Rate FIO2% 06/07/24 01:00 06/06/24 21:30 06/07/24 00:35 Temperature Pulse Rate 99 H Respiratory Rate Blood Pressure 161/66 O2 Sat by Pulse Oximetry 98 Oxygen Delivery Method Nasal Cannula Oxygen Flow Rate 2 FIO2% 28 06/07/24 02:00 06/07/24 02:00 06/07/24 03:00 Temperature Pulse Rate 97 H Respiratory Rate 20 Blood Pressure 139/63 146/64 O2 Sat by Pulse Oximetry 100 Oxygen Delivery Method Oxygen Flow Rate FIO2% 06/07/24 03:00 06/07/24 04:00 06/07/24 05:00 Temperature 98.1 F Pulse Rate 89 93 H 101 H Respiratory Rate 20 23 28 H Blood Pressure 144/62 149/65 O2 Sat by Pulse Oximetry 98 99 95 Oxygen Delivery Method Oxygen Flow Rate FIO2% 06/07/24 06:00 06/07/24 09:02 06/07/24 08:00 Temperature 98.1 F Pulse Rate 104 H 118 H Respiratory Rate 32 H 26 H Blood Pressure 140/64 126/58 O2 Sat by Pulse Oximetry 96 99 Oxygen Delivery Method Nasal Cannula Nasal Cannula Oxygen Flow Rate 2 2 FIO2% 28 Labs: Laboratory Last Values WBC 13.3 X10^3/uL (3.6-10.0) H 06/07/24 04:50 RBC 3.26 X10^6/uL (3.5-5.4) L 06/07/24 04:50 Hgb 9.9 g/dL (12.0-16.0) L 06/07/24 04:50 Hct 27.8 % (36.0-47.0) L 06/07/24 04:50 MCV 85.4 fL (80.0-100.0) 06/07/24 04:50 MCH 30.3 pg (27.0-34.0) 06/07/24 04:50 MCHC 35.5 g/dL (33.0-35.0) H 06/07/24 04:50 RDW 14.8 % (11.6-16.5) 06/07/24 04:50 Plt Count 167 X10^3/uL (150.0-450.0) 06/07/24 04:50 Plt Count Comment Adequate (ADEQUATE) 06/05/24 21:54 MPV 8.9 fL (7.4-11.0) 06/07/24 04:50 Neut % (Auto) 74.7 % (42.0-75.0) 06/07/24 04:50 Lymph % (Auto) 11.6 % (21.0-51.0) L 06/07/24 04:50 [place] % (Auto) 13.3 % (0.0-13.0) H 06/07/24 04:50 Eos % (Auto) 0.3 % (0.9-2.9) L 06/07/24 04:50 Baso % (Auto) 0.1 % (0.2-1.0) L 06/07/24 04:50 Neut # (Auto) 10.0 x10^3/uL (2.2-4.8) H 06/07/24 04:50 Lymph # (Auto) 1.5 X10^3/uL (1.3-2.9) 06/07/24 04:50 [place] # (Auto) 1.8 x10^3/uL (0.3-0.8) H 06/07/24 04:50 Eos # (Auto) 0.0 x10^3/uL (0.0-0.2) 06/07/24 04:50 Baso # (Auto) 0.0 X10^3/uL (0.0-0.1) 06/07/24 04:50 Absolute Nucleated RBC 0.1 /100WBC 06/07/24 04:50 Total Counted 100 06/05/24 21:54 Neutrophils % (Manual) 95 % (39-76) H 06/05/24 21:54 Lymphocytes % (Manual) 4 % (13-43) L 06/05/24 21:54 Monocytes % (Manual) 1 % (4-9) L 06/05/24 21:54 Plt Morphology Comment Normal (NORMAL) 06/05/24 21:54 RBC Morphology Abnormal (NORMAL) A 06/05/24 21:54 Anisocytosis 1+ A 06/05/24 21:54 Sodium 143 mmol/L (136-145) 06/07/24 04:50 Corrected Sodium TNP 06/07/24 04:50 Potassium 4.0 mmol/L (3.5-5.1) 06/07/24 04:50 Chloride 108 mmol/L (98-107) H 06/07/24 04:50 Carbon Dioxide 31.7 mmol/L (21-32) 06/07/24 04:50 BUN 20 mg/dL (7-18) H 06/07/24 04:50 Creatinine 0.83 mg/dL (0.55-1.02) 06/07/24 04:50 Est GFR (MDRD) Af Amer > 60 (>60) 06/07/24 04:50 Est GFR (MDRD) Non-Af > 60 (>60) 06/07/24 04:50 Glucose 107 mg/dL (65-99) H 06/07/24 04:50 Calcium 8.9 mg/dL (8.5-10.1) 06/07/24 04:50 Corrected Calcium 9.9 mg/dL (8.5-10.1) 06/07/24 04:50 Magnesium 1.8 mg/dL (2.0-2.9) L 06/07/24 04:50 Total Bilirubin 0.30 mg/dL (0.2-1.0) 06/07/24 04:50 AST 31 Units/L (15-37) 06/07/24 04:50 ALT 15 Units/L (12-78) 06/07/24 04:50 Alkaline Phosphatase 47 Units/L (46-116) 06/07/24 04:50 Total Protein 5.6 g/dL (6.4-8.2) L 06/07/24 04:50 Albumin 2.8 g/dL (3.4-5.0) L 06/07/24 04:50 Globulin 2.8 g/dL (2.5-4.5) 06/07/24 04:50 Albumin/Globulin Ratio 1.0 Ratio (1.1-2.1) L 06/07/24 04:50 Blood Type B NEGATIVE 06/05/24 10:32 Antibody Screen Negative 06/05/24 10:32 Crossmatch See Detail 06/05/24 10:32 Reason For Visit: HYPOTENSION S/P ANTERIOGRAM, WITH BALLOON Discharge Diagnosis All Active Problems (Updated 06/07/24 @ 10:53 by Megha Singh MD) COPD exacerbation (Acute) Acute bronchitis (Acute) Multiple pulmonary nodules (Acute) Chronic obstructive lung disease (Chronic) Essential hypertension (Chronic) Hyperlipidemia (Chronic) Hypothyroidism (Chronic) Coronary arteriosclerosis (Chronic) Generalized anxiety disorder (Chronic) COPD exacerbation (Acute) Pleural effusion (Acute) Abnormal cardiac enzyme level (Acute) Plan of Treatment: Continue with present treatment and follow up plan. Pt is to keep follow up appointment as instructed and take medications as ordered. Discharge Medications Discharge Medications: codeine Allergy (Verified 11/17/18 14:00) hydrocodone Allergy (Verified 11/17/18 14:00) New Prescriptions atorvastatin 20 mg tablet 20 mg PO DAILY 30 days #30 tabs 06/07/24 [Rx] cefdinir 300 mg capsule 300 mg PO BID 5 days #10 caps 06/07/24 [Rx] Discharge Disposition Discharge Disposition: home Discharge Condition: stable Discharge Plan Discharge Plan Hospital Course: Ms Duval is a 83y/o female with a PMH of CAD s/p PCI, PVD , HTN, HLD, hypothyroidism and anxiety was admitted for worsening claudication symptoms due to b/l leg ischemia. She underwent intervention in both legs including diagnostic aortogram, diagnostic arteriogram right leg, angioplasty. She was noted to be hypotensive and short of breath after the procedure so was transferred to ICU for closer monitoring. She received several fluid boluses to help with BP. She was requiring O2 via NC. CXR was concerning for pneumonia. She did not require pressor support. Medicine was consulted. Patient's labs showed severe anemia, Hgb 6.6. She did get 2 units PRBCS. She was doing better. Her hgb came up to 9.9 prior to discharge. She was stable to go home and will f/u with Dr Haley and PCP. Her BP also remained stable. She was sent home on PO abx and IS. Patient Disposition: 01 HOME, SELF-CARE Condition: Stable Health Concerns: Post Hospitalization: new medications and changes needed to prevent readmission or further decline. Pt educated and given instructions on all concerns. Plan of Treatment: Continue with present treatment and follow up plan. Pt is to keep follow up appointment as instructed and take medications as ordered. Prescription drug monitoring program results: PDMP reviewed and no concerns identified Prescriptions: New atorvastatin 20 mg Tablet 20 mg PO DAILY 30 Days Qty: 30 0RF Continued theophylline 400 mg tablet extended release 24 hr 400 mg PO DAILY Patient Comments: TAKE 1 TABLET BY MOUTH EVERY DAY 90 metoprolol succinate 50 mg tablet extended release 24 hr 100 mg PO DAILY Patient Comments: TAKE 1 TABLET BY MOUTH EVERY DAY clonazepam 0.5 mg tablet 0.5 mg PO PRN PRN Patient Comments: TAKE 1 TABLET BY MOUTH EVERY DAY NEEDED FOR 90 DAYS prednisone 5 mg tablet 5 mg PO DAILY Patient Comments: TAKE 1 TABLET BY MOUTH EVERY DAY WITH FOOD OR MILK 90 amlodipine 5 mg tablet 5 mg PO DAILY Patient Comments: TAKE 1 TABLET BY MOUTH EVERY DAY levothyroxine 75 mcg tablet 75 mcg PO DAILY Patient Comments: TAKE 1 TABLET BY MOUTH EVERY DAY IN THE MORNING ON EMPTY STOMACH Trelevlad Ellipta 200-62.5-25 mcg blister with device 1 ea INHALATION DAILY Patient Comments: INHALE 1 PUFF INTO THE LUNGS EVERY DAY FOR 90 DAYS Orders to Discharge Patient Discharge Orders: Discharge (Routine); Ordered 06/07/24 Ordered By: Megha Singh Follow ups/Referrals Follow ups/Referrals: Ramesh Haley [STAFF PHYSICIAN] - 06/16/24 3:00 pm Delfina Ureña [Primary Care Provider] - PCP Instructions Instructions: Endovascular Therapy for Peripheral Vascular Disease: What to Know After Activity Restrictions/Additional Instructions: POST OPERATIVE INSTRUCTIONS: (1) A RESPONSIBLE ADULT SHOULD REMAIN WITH YOU TODAY, YOU SHOULD BE ASSISTED TO THE BATHROOM FOR 6-8 HOURS. REST QUIETLY THE REMAINDER OF THE DAY. (2) DEEP BREATHING AND COUGHING EXERCISES FOR THE NEXT 6-8 HOURS. (3)SMOKE ONLY IF SOMEONE IS WITH YOU FOR THE NEXT 12 HOURS. (4) DIET TOLERATED, DRINK PLENTY OF WATER. (5) DO NOT DRIVE YOUR AUTOMOBILE OR OPERATE MACHINERY FOR 12-18 HOURS AFTER RECEIVING A GENERAL ANESTHETIC OR WHILE TAKING NARCOTIC PAIN MEDICATION. (6) SOME ANESTHETIC AGENTS AND MEDICATION TAKEN FOR PAIN MAY CAUSE NAUSEA. IF NAUSEA PERSISTS FOR SEVERAL HOURS AT HOME, CALL YOUR DOCTOR. (7) LIGHT ACTIVITIES. (8) OBSERVE OPERATIVE AREA FOR SIGNS OF INFECTION: REDNESS, SWELLING, FOUL ODOR, DRAINAGE, AND NOTIFY FOR ANY CONCERNS OR FEVER OVER 101.0. (9) KEEP OPERATIVE AREA CLEAN AND DRY. YOU MAY REMOVE DRESSING AFTER 24 HOURS AND SHOWER/BATH WITH ANTIBACTERIAL SOAP. (10) RESUME ALL PREVIOUS MEDICATIONS PRESCRIBED BY YOUR DOCTOR. (11) TAKE PAIN MEDICATIONS PRESCRIBED. Continue all home medications inclu ding Aspirin. (12) OBSERVE AFFECTED AREA FOR CIRCULATION, CHANGE OF COLOR, NUMBNESS OR TINGLING, COLDNESS, INCREASED PAIN, OR BLEEDING. FOR ANY COMPLICATIONS PLEASE CALL DR. HALEY @ PRIOR TO GOING TO EMERGENCY DEPARTMENT. FOLLOW UP WITH DR. HALEY ON June 16, 2024 3pm Stand Alone Forms: Post Hospital Follow Up Care
== END 2024-06-07 11:30 | disposition home or self-care (01) ==
LOC: SURG1 09:52 → ICU 09:52
PROVIDERS: ADMIT Surgery; ATTEND Surgery
PROC: ANGIOGR (2024-06-05 10:15)
DX: I70.223 Atherosclerosis of native arteries of extremities with rest pain, bilateral legs; D64.89 Other specified anemias; Z16.12 Extended spectrum beta lactamase (ESBL) resistance; I95.89 Other hypotension; B96.83 Acinetobacter baumannii as the cause of diseases classified elsewhere; E03.8 Other specified hypothyroidism; R94.31 Abnormal electrocardiogram [ECG] [EKG]; I25.10 Atherosclerotic heart disease of native coronary artery without angina pectoris; E78.5 Hyperlipidemia, unspecified; I10 Essential (primary) hypertension; F41.8 Other specified anxiety disorders; E83.42 Hypomagnesemia